=== PATIENT | female | born 1935 | race Two or more races ===

== ENCOUNTER 2023-02-23 18:23 | Inpatient (IN) | payer MEDICARE, OTHER ==
[~2023-02-23] VITALS: Ht 144.8 cm; Wt 65.8 kg
[2023-02-23 19:02] LABS: BASOPHILS # (AUTO) 0.3 K/UL (0.0-0.2); BASOPHILS % (AUTO) 4.4 % (0.0-2.0); EOSINOPHILS # (AUTO) 0.4 K/uL (0.0-0.7); EOSINOPHILS % (AUTO) 6.3 % (0.0-7.0); HEMATOCRIT 35.5 % (31.2-41.9); HEMOGLOBIN 11.2 g/dL (10.9-14.3); LYMPHOCYTES # (AUTO) 1.9 K/uL (0.8-4.8); LYMPHOCYTES % (AUTO) 29.9 % (20.5-51.5); MEAN CORPUSCULAR HEMOGLOBIN 24.6 uug (24.7-32.8); MEAN CORPUSCULAR HGB CONC 32 g/dL (32.3-35.6); MEAN CORPUSCULAR VOLUME 77.9 fL (75.5-95.3); MONOCYTES # (AUTO) 0.4 K/uL (0.1-1.30); MONOCYTES % (AUTO) 7.1 % (0.0-11.0); NEUTROPHILS # (AUTO) 3.3 K/uL (1.8-8.9); NEUTROPHILS % (AUTO) 52.3 % (38.5-71.5); PLATELET COUNT (AUTO) 215 K/uL (179-408); RED BLOOD CELL COUNT(AUTO) 4.55 MIL/uL (3.63-4.92); RED CELL DISTRIBUTION WIDTH 21.4 % (12.3-17.7); WHITE BLOOD COUNT (AUTO) 6.3 K/uL (3.8-11.8)
[2023-02-23 19:04] LABS: DIFFERENTIAL COMMENT 1
[2023-02-23 19:11] LABS: AMMONIA < 10 umol/L (11-32); CALCIUM 9.2 mg/dL (8.5-10.1); CARBON DIOXIDE 30 mmol/L (21-32); CHLORIDE 109 mmol/L (98-107); CREATININE 1.4 mg/dL (0.6-1.3); GLUCOSE 105 mg/dL (74-106); POTASSIUM 3.6 mmol/L (3.5-5.1); SODIUM SERUM 148 mmol/L (136-145); UREA NITROGEN, BLOOD 40 mg/dL (7-18)
[2023-02-23 19:15] LABS: ETHANOL < 3 MG/DL (0-10)
[2023-02-23 19:18] LABS: ACETAMINOPHEN 2.5 ug/mL (10-30); ALANINE AMINOTRANSFERASE 11 U/L (14-59); ALBUMIN 2.5 g/dL (3.4-5.0); ALKALINE PHOSPHATASE 60 U/L (50-136); ASPARTATE AMINOTRANSFERASE 8 U/L (15-37); BILIRUBIN,DIRECT 0.1 mg/dL (0.0-0.2); BILIRUBIN,TOTAL 0.3 mg/dL (0.2-1.0); TOTAL PROTEIN, SERUM 5.7 g/dL (6.4-8.2)
[2023-02-23 19:23] LABS: THYROID STIMULATING HORMONE 1.502 mIU/mL (0.358-3.740)
[2023-02-23 20:29] LABS: *CLARITY,URINE CLOUDY (CLEAR); *COLOR,URINE YELLOW (YELLOW); *KETONES,URINE 1+ (NEGATIVE); *PROTEIN,URINE 2+ (NEGATIVE); *UROBILINOGEN,URINE 0.2 E.U./dl (NORMAL); LEUKOCYTE ESTERASE ,URINE 3+ (NEGATIVE); NITRITE, URINE POSITIVE (NEGATIVE); UGLUCOSE NEGATIVE (NEGATIVE)
[2023-02-23 20:30] LABS: *BILIRUBIN,URIN 1+ (NEGATIVE); *BLOOD, URINE 1+ (NEGATIVE)
[2023-02-23] MEDS ORDERED: HALOPERIDOL LACTATE 5 MG/1 ML VIAL IM ONE (20:30)
[2023-02-23 20:31] LABS: BACTERIA,URINE FEW /HPF (NONE SEEN)
[2023-02-23] MEDS ORDERED: HALOPERIDOL LACTATE 5 MG/1 ML VIAL ONE (20:31)
[2023-02-23] MEDS ORDERED: CEFTRIAXONE 1 G in IV DEXTROSE 5% 50 ML IV ONE (20:45)
[2023-02-23] MEDS ORDERED: CEFTRIAXONE /D5W 50ML IVPB **ER PYXIS IV ONE (21:30)
[2023-02-23 22:40] VITALS: BP 172/56; TEMP 97.3; O2SAT 91
[2023-02-23] MEDS ORDERED: MORPHINE SULFATE 2 MG/1 ML DISP.SYRIN IV PRN (22:45)
[2023-02-23] MEDS ORDERED: ACETAMINOPHEN 325 MG TABLET PO PRN (22:45)
[2023-02-23] MEDS ORDERED: ENALAPRILAT DIHYDRATE 1.25 MG/1 ML VIAL IV PRN (22:45)
[2023-02-23] MEDS ORDERED: ONDANSETRON 4 MG/2 ML VIAL IV PRN (22:45)
[2023-02-23] MEDS: LORAZEPAM 2 MG/1 ML VIAL IV PRN (23:21)
[2023-02-23] MEDS: ENOXAPARIN SODIUM 30 MG/0.3 ML DISP.SYRIN SUBCUT SCH (23:22)
[2023-02-24 04:40] VITALS: BP 147/53; TEMP 98.5; O2SAT 95
[2023-02-24] MEDS: PANTOPRAZOLE SODIUM 40 MG TABLET.DR PO SCH (06:41)
[2023-02-24 07:18] LABS: BASOPHILS # (AUTO) 0.1 K/UL (0.0-0.2); BASOPHILS % (AUTO) 1.5 % (0.0-2.0); EOSINOPHILS # (AUTO) 0.3 K/uL (0.0-0.7); EOSINOPHILS % (AUTO) 6.8 % (0.0-7.0); HEMOGLOBIN 12.3 g/dL (10.9-14.3); LYMPHOCYTES # (AUTO) 1.7 K/uL (0.8-4.8); LYMPHOCYTES % (AUTO) 35.7 % (20.5-51.5); MEAN CORPUSCULAR HEMOGLOBIN 25.2 uug (24.7-32.8); MEAN CORPUSCULAR HGB CONC 32 g/dL (32.3-35.6); MEAN CORPUSCULAR VOLUME 78.1 fL (75.5-95.3); MONOCYTES # (AUTO) 0.5 K/uL (0.1-1.30); MONOCYTES % (AUTO) 10.9 % (0.0-11.0); NEUTROPHILS # (AUTO) 2.1 K/uL (1.8-8.9); NEUTROPHILS % (AUTO) 45.1 % (38.5-71.5); PLATELET COUNT (AUTO) 217 K/uL (179-408); RED BLOOD CELL COUNT(AUTO) 4.86 MIL/uL (3.63-4.92); RED CELL DISTRIBUTION WIDTH 21.2 % (12.3-17.7); WHITE BLOOD COUNT (AUTO) 4.7 K/uL (3.8-11.8)
[2023-02-24 07:27] LABS: DIFFERENTIAL COMMENT 1
[2023-02-24 07:46] LABS: IRON, SERUM 30 ug/dL (50-175)
[2023-02-24 07:55] LABS: ALANINE AMINOTRANSFERASE 14 U/L (14-59); ALBUMIN 2.6 g/dL (3.4-5.0); ALKALINE PHOSPHATASE 64 U/L (50-136); ASPARTATE AMINOTRANSFERASE 9 U/L (15-37); BILIRUBIN,TOTAL 0.4 mg/dL (0.2-1.0); CARBON DIOXIDE 29 mmol/L (21-32); CHLORIDE 108 mmol/L (98-107); CHOLESTEROL 223 mg/dL (<200); FERRITIN 129 ng/mL (8-252); GLUCOSE 98 mg/dL (74-106); HDL CHOLESTEROL 42 mg/dL (40-60); MAGNESIUM 2.1 mg/dL (1.8-2.4); NT-PRO BNP 1558 pg/mL (0-125); PHOSPHOROUS 3.1 mg/dL (2.5-4.9); POTASSIUM 3.5 mmol/L (3.5-5.1); SODIUM SERUM 146 mmol/L (136-145); TOTAL PROTEIN, SERUM 6.3 g/dL (6.4-8.2); TRIGLYCERIDES 255 MG/DL (30-150); UREA NITROGEN, BLOOD 34 mg/dL (7-18)
[2023-02-24] MEDS: FUROSEMIDE 20 MG/2 ML VIAL IV SCH (09:14)
[2023-02-24] MEDS: CHOLECALCIFEROL 1,000 UNIT TABLET PO SCH (09:40)
[2023-02-24] MEDS: ASCORBIC ACID 500 MG TABLET PO SCH (09:40)
[2023-02-24] MEDS: LORAZEPAM 2 MG/1 ML VIAL IV PRN ×2 (11:39→21:42)
[2023-02-24] MEDS ORDERED: DIVA250T4 PO (14:45)
[2023-02-24] MEDS ORDERED: DOCU100C36 PO (14:46)
[2023-02-24] MEDS ORDERED: MONT10TA22 PO (14:47)
[2023-02-24] MEDS ORDERED: HYDR12.55 PO (14:48)
[2023-02-24] MEDS ORDERED: RISP0.5T5 PO (14:49)
[2023-02-24] MEDS ORDERED: NIFE-34 PO (14:50)
[2023-02-24] MEDS ORDERED: LOSA50TA39 PO (14:51)
[2023-02-24] MEDS ORDERED: ASCO500T85 PO (14:53)
[2023-02-24] MEDS ORDERED: METO-357 PO (14:55)
[2023-02-24] MEDS ORDERED: CHOL10005 PO (14:55)
[2023-02-24] MEDS ORDERED: DONE5TAB34 PO (14:57)
[2023-02-24] MEDS ORDERED: METF-440 PO (14:57)
[2023-02-24] MEDS ORDERED: HYDR-4077 PO (14:58)
[2023-02-24] MEDS ORDERED: MEMA10TA PO (14:59)
[2023-02-24] MEDS ORDERED: MV-M1TAB2 PO (15:01)
[2023-02-24] MEDS ORDERED: CLOT30CR24 TP (15:02)
[2023-02-24] MEDS ORDERED: NUT.237L36 PO (15:02)
[2023-02-24] MEDS ORDERED: ZINC113P3 TP (15:03)
[2023-02-24] MEDS ORDERED: PANT40TA49 PO (15:06)
[2023-02-24] MEDS ORDERED: LINA5TAB PO (15:06)
[2023-02-24] MEDS ORDERED: SENN8.6T19 PO (15:08)
[2023-02-24] MEDS ORDERED: MAG355OR18 PO (15:09)
[2023-02-24] MEDS ORDERED: INSU100V28 (15:10)
[2023-02-24] MEDS ORDERED: BISA10SU61 RC (15:11)
[2023-02-24] MEDS ORDERED: NA P133E RC (15:13)
[2023-02-24] MEDS ORDERED: MAGN400O6 PO (15:14)
[2023-02-24] MEDS ORDERED: ACET325C7 PO (15:15)
[2023-02-24 15:50] VITALS: BP 143/60; TEMP 97.9; O2SAT 96
[2023-02-24] MEDS: IV D5W 1000ML 1,000 ML IV PRN (16:37)
[2023-02-24] MEDS ORDERED: FLEET ENEMA 133 ML BOTTLE RC PRN (18:30)
[2023-02-24] MEDS ORDERED: MAG HYDROX/AL HYDROX/SIMETH 30 ML LIQUID UDC PO PRN (18:30)
[2023-02-24] MEDS ORDERED: MAGNESIUM HYDROXIDE 30 ML LIQUID UDC PO PRN (18:30)
[2023-02-24] MEDS ORDERED: BISACODYL 10 MG SUPP.RECT RC PRN (18:30)
[2023-02-24 20:38] VITALS: BP 163/62; TEMP 98.5; O2SAT 94
[2023-02-24] MEDS: SENNOSIDES 1 TABLET PO SCH (20:38)
[2023-02-24] MEDS: MEMANTINE HCL 10 MG TABLET PO SCH (20:38)
[2023-02-24] MEDS: ENOXAPARIN SODIUM 30 MG/0.3 ML DISP.SYRIN SUBCUT SCH (20:39)
[2023-02-24 21:00] VITALS: BP 143/63
[2023-02-24] MEDS ORDERED: DOCUSATE SODIUM 100 MG CAPSULE PO SCH (21:00)
[2023-02-24] MEDS: CEFTRIAXONE 1 G in IV DEXTROSE 5% 50 ML IV SCH (22:02)
[2023-02-24] MEDS: DIVALPROEX 250 MG TABLET.DR PO SCH (22:05)
[2023-02-25 00:20] VITALS: BP 169/59; TEMP 97.8; O2SAT 93
[2023-02-25 04:20] VITALS: BP 161/66; TEMP 98.3; O2SAT 93
[2023-02-25] MEDS: DIVALPROEX 250 MG TABLET.DR PO SCH (05:16)
[2023-02-25] MEDS: PANTOPRAZOLE SODIUM 40 MG TABLET.DR PO SCH (06:21)
[2023-02-25] MEDS ORDERED: PANTOPRAZOLE SODIUM 40 MG TABLET.DR PO SCH (07:00)
[2023-02-25] MEDS ORDERED: DOCUSATE SODIUM 100 MG CAPSULE PO SCH (09:00)
[2023-02-25] MEDS ORDERED: ASCORBIC ACID 500 MG TABLET PO SCH (09:00)
[2023-02-25] MEDS: FUROSEMIDE 20 MG/2 ML VIAL IV SCH (09:19)
[2023-02-25] MEDS: METFORMIN HCL 500 MG TABLET PO SCH ×2 (09:19→17:13)
[2023-02-25] MEDS: LINAGLIPTIN 5 MG TABLET PO SCH (09:19)
[2023-02-25] MEDS: DONEPEZIL 5 MG TABLET PO SCH (09:19)
[2023-02-25] MEDS: MEMANTINE HCL 10 MG TABLET PO SCH ×2 (09:19→20:31)
[2023-02-25] MEDS: risperiDONE 0.5 MG TABLET PO SCH ×2 (09:19→17:13)
[2023-02-25] MEDS: ASCORBIC ACID 500 MG TABLET PO SCH (09:19)
[2023-02-25] MEDS: CHOLECALCIFEROL 1,000 UNIT TABLET PO SCH (09:20)
[2023-02-25] MEDS: hydrALAZINE HCL 50 MG TABLET PO SCH (09:22)
[2023-02-25] MEDS: METOPROLOL SUCCINATE XL 50 MG TAB.SR.24H PO SCH (09:22)
[2023-02-25] MEDS: LOSARTAN POTASSIUM 50 MG TABLET PO SCH (09:23)
[2023-02-25] MEDS: GLUCERNA 1.2 1000ML LIQUID PO SCH ×3 (09:23→17:14)
[2023-02-25] MEDS: NIFEdipine XL 60 MG TABSR PO SCH (09:24)
[2023-02-25] MEDS: IV D5W 1000ML 1,000 ML IV PRN (10:36)
[2023-02-25] MEDS: CLOTRIMAZOLE 1% CREAM 30 GM TUBE TP SCH ×2 (13:02→20:33)
[2023-02-25] MEDS: VALPROIC ACID 250 MG/5 ML LIQUID UDC PO SCH ×2 (13:36→21:07)
[2023-02-25 15:38] VITALS: BP 136/56; TEMP 97.8; O2SAT 96
[2023-02-25] MEDS: MONTELUKAST SODIUM 10 MG TABLET PO SCH (17:13)
[2023-02-25 20:00] VITALS: BP 132/62; TEMP 98.2; O2SAT 93
[2023-02-25] MEDS: SENNOSIDES 1 TABLET PO SCH (20:31)
[2023-02-25] MEDS: ENOXAPARIN SODIUM 30 MG/0.3 ML DISP.SYRIN SUBCUT SCH (20:32)
[2023-02-25] MEDS: DOCUSATE SODIUM 100 MG/10 ML LIQUID UDC PO SCH (20:32)
[2023-02-25] MEDS: CEFTRIAXONE 1 G in IV DEXTROSE 5% 50 ML IV SCH (21:07)
[2023-02-26] VITALS: BP 129/65; TEMP 98.4; O2SAT 94
[2023-02-26] MEDS: LORAZEPAM 2 MG/1 ML VIAL IV PRN ×2 (00:29→20:50)
[2023-02-26] MEDS: IV D5W 1000ML 1,000 ML IV PRN ×2 (02:18→19:15)
[2023-02-26 04:00] VITALS: BP 128/44; TEMP 98.1; O2SAT 94
[2023-02-26] MEDS: PANTOPRAZOLE ORAL SUSPENSION 40 MG SUSPDR.PKT PO SCH (06:04)
[2023-02-26] MEDS: VALPROIC ACID 250 MG/5 ML LIQUID UDC PO SCH ×3 (06:04→22:59)
[2023-02-26 07:32] LABS: BASOPHILS # (AUTO) 0.1 K/UL (0.0-0.2); BASOPHILS % (AUTO) 1.2 % (0.0-2.0); EOSINOPHILS # (AUTO) 0.5 K/uL (0.0-0.7); EOSINOPHILS % (AUTO) 6.7 % (0.0-7.0); HEMATOCRIT 34.1 % (31.2-41.9); HEMOGLOBIN 11.4 g/dL (10.9-14.3); LYMPHOCYTES # (AUTO) 2.5 K/uL (0.8-4.8); LYMPHOCYTES % (AUTO) 38.1 % (20.5-51.5); MEAN CORPUSCULAR HEMOGLOBIN 25.6 uug (24.7-32.8); MEAN CORPUSCULAR HGB CONC 33 g/dL (32.3-35.6); MEAN CORPUSCULAR VOLUME 76.8 fL (75.5-95.3); MONOCYTES # (AUTO) 0.7 K/uL (0.1-1.30); MONOCYTES % (AUTO) 10.6 % (0.0-11.0); NEUTROPHILS # (AUTO) 2.9 K/uL (1.8-8.9); NEUTROPHILS % (AUTO) 43.4 % (38.5-71.5); PLATELET COUNT (AUTO) 207 K/uL (179-408); RED BLOOD CELL COUNT(AUTO) 4.44 MIL/uL (3.63-4.92); RED CELL DISTRIBUTION WIDTH 20.9 % (12.3-17.7); WHITE BLOOD COUNT (AUTO) 6.7 K/uL (3.8-11.8)
[2023-02-26 07:38] LABS: DIFFERENTIAL COMMENT 1
[2023-02-26 07:43] LABS: CALCIUM 8.2 mg/dL (8.5-10.1); CARBON DIOXIDE 31 mmol/L (21-32); CHLORIDE 103 mmol/L (98-107); CREATININE 1.2 mg/dL (0.6-1.3); GLUCOSE 115 mg/dL (74-106); MAGNESIUM 1.8 mg/dL (1.8-2.4); PHOSPHOROUS 3.7 mg/dL (2.5-4.9); POTASSIUM 3.1 mmol/L (3.5-5.1); SODIUM SERUM 138 mmol/L (136-145); UREA NITROGEN, BLOOD 27 mg/dL (7-18)
[2023-02-26] MEDS: risperiDONE 0.5 MG TABLET PO SCH ×2 (09:04→17:20)
[2023-02-26] MEDS: ASCORBIC ACID 500 MG TABLET PO SCH (09:04)
[2023-02-26] MEDS: MEMANTINE HCL 10 MG TABLET PO SCH ×2 (09:04→20:38)
[2023-02-26] MEDS: NIFEdipine XL 60 MG TABSR PO SCH (09:05)
[2023-02-26] MEDS: CHOLECALCIFEROL 1,000 UNIT TABLET PO SCH (09:06)
[2023-02-26] MEDS: METFORMIN HCL 500 MG TABLET PO SCH ×2 (09:06→17:21)
[2023-02-26] MEDS: DONEPEZIL 5 MG TABLET PO SCH (09:06)
[2023-02-26] MEDS: LOSARTAN POTASSIUM 50 MG TABLET PO SCH (09:06)
[2023-02-26] MEDS: METOPROLOL SUCCINATE XL 50 MG TAB.SR.24H PO SCH (09:06)
[2023-02-26] MEDS: hydrALAZINE HCL 50 MG TABLET PO SCH (09:07)
[2023-02-26] MEDS: FUROSEMIDE 20 MG/2 ML VIAL IV SCH (09:09)
[2023-02-26] MEDS: LINAGLIPTIN 5 MG TABLET PO SCH (09:10)
[2023-02-26] MEDS: CLOTRIMAZOLE 1% CREAM 30 GM TUBE TP SCH ×2 (09:15→20:54)
[2023-02-26] MEDS: GLUCERNA 1.2 1000ML LIQUID PO SCH ×3 (09:15→17:21)
[2023-02-26] MEDS ORDERED: POTASSIUM CHLORIDE 20 MEQ POWDER PACKET PO ONE (10:00)
[2023-02-26 11:21] VITALS: BP 127/42; TEMP 97.6; O2SAT 93
[2023-02-26 16:00] VITALS: BP 138/45; TEMP 97.6; O2SAT 95
[2023-02-26] MEDS: MONTELUKAST SODIUM 10 MG TABLET PO SCH (17:21)
[2023-02-26 17:47] VITALS: BP 145/47; TEMP 97.8; O2SAT 96
[2023-02-26 20:28] VITALS: BP 114/43; TEMP 98.2; O2SAT 91
[2023-02-26] MEDS: DOCUSATE SODIUM 100 MG/10 ML LIQUID UDC PO SCH (20:38)
[2023-02-26] MEDS: SENNOSIDES 1 TABLET PO SCH (20:38)
[2023-02-26] MEDS: ENOXAPARIN SODIUM 30 MG/0.3 ML DISP.SYRIN SUBCUT SCH (20:39)
[2023-02-26] MEDS: CEFTRIAXONE 1 G in IV DEXTROSE 5% 50 ML IV SCH (22:56)
[2023-02-27] VITALS (7 sets, daily range): BP systolic 99–152; BP diastolic 36–64; TEMP 97.3–98.2; O2SAT 89–95
[2023-02-27] MEDS: VALPROIC ACID 250 MG/5 ML LIQUID UDC PO SCH ×3 (05:20→22:14)
[2023-02-27] MEDS: PANTOPRAZOLE ORAL SUSPENSION 40 MG SUSPDR.PKT PO SCH (06:09)
[2023-02-27 06:56] LABS: BASOPHILS # (AUTO) 0.1 K/UL (0.0-0.2); EOSINOPHILS # (AUTO) 0.4 K/uL (0.0-0.7); EOSINOPHILS % (AUTO) 4.5 % (0.0-7.0); HEMATOCRIT 35.1 % (31.2-41.9); HEMOGLOBIN 11.6 g/dL (10.9-14.3); LYMPHOCYTES # (AUTO) 3.6 K/uL (0.8-4.8); LYMPHOCYTES % (AUTO) 40.2 % (20.5-51.5); MEAN CORPUSCULAR HEMOGLOBIN 25.2 uug (24.7-32.8); MEAN CORPUSCULAR HGB CONC 33 g/dL (32.3-35.6); MEAN CORPUSCULAR VOLUME 76.6 fL (75.5-95.3); MONOCYTES # (AUTO) 0.9 K/uL (0.1-1.30); MONOCYTES % (AUTO) 10.4 % (0.0-11.0); NEUTROPHILS # (AUTO) 3.9 K/uL (1.8-8.9); NEUTROPHILS % (AUTO) 43.9 % (38.5-71.5); PLATELET COUNT (AUTO) 207 K/uL (179-408); RED BLOOD CELL COUNT(AUTO) 4.59 MIL/uL (3.63-4.92); WHITE BLOOD COUNT (AUTO) 8.9 K/uL (3.8-11.8)
[2023-02-27 07:01] LABS: DIFFERENTIAL COMMENT 1
[2023-02-27 07:25] LABS: CALCIUM 8.9 mg/dL (8.5-10.1); CARBON DIOXIDE 30 mmol/L (21-32); CHLORIDE 100 mmol/L (98-107); CREATININE 1.2 mg/dL (0.6-1.3); GLUCOSE 123 mg/dL (74-106); MAGNESIUM 1.7 mg/dL (1.8-2.4); PHOSPHOROUS 3.4 mg/dL (2.5-4.9); POTASSIUM 3.6 mmol/L (3.5-5.1); SODIUM SERUM 138 mmol/L (136-145); UREA NITROGEN, BLOOD 31 mg/dL (7-18)
[2023-02-27] MEDS: GLUCERNA 1.2 1000ML LIQUID PO SCH ×3 (08:36→17:55)
[2023-02-27] MEDS: METFORMIN HCL 500 MG TABLET PO SCH ×2 (08:58→17:55)
[2023-02-27] MEDS: LOSARTAN POTASSIUM 50 MG TABLET PO SCH (09:00)
[2023-02-27] MEDS: FUROSEMIDE 20 MG/2 ML VIAL IV SCH (09:00)
[2023-02-27] MEDS: hydrALAZINE HCL 50 MG TABLET PO SCH (09:00)
[2023-02-27] MEDS: NIFEdipine XL 60 MG TABSR PO SCH (09:00)
[2023-02-27] MEDS: CLOTRIMAZOLE 1% CREAM 30 GM TUBE TP SCH ×2 (09:00→22:13)
[2023-02-27] MEDS: METOPROLOL SUCCINATE XL 50 MG TAB.SR.24H PO SCH (09:00)
[2023-02-27] MEDS: DONEPEZIL 5 MG TABLET PO SCH (09:12)
[2023-02-27] MEDS: LINAGLIPTIN 5 MG TABLET PO SCH (09:13)
[2023-02-27] MEDS: MEMANTINE HCL 10 MG TABLET PO SCH ×2 (09:13→22:12)
[2023-02-27] MEDS: risperiDONE 0.5 MG TABLET PO SCH ×2 (09:13→17:55)
[2023-02-27] MEDS: CHOLECALCIFEROL 1,000 UNIT TABLET PO SCH (09:25)
[2023-02-27] MEDS: ASCORBIC ACID 500 MG TABLET PO SCH (09:25)
[2023-02-27] MEDS ORDERED: MAGNESIUM OXIDE 400 MG TABLET PO ONE (11:00)
[2023-02-27] MEDS: IV D5W 1000ML 1,000 ML IV PRN ×2 (14:06→14:18)
[2023-02-27] MEDS: MUPIROCIN 2% OINT 22 GM TUBE NS SCH ×2 (14:17→21:00)
[2023-02-27] MEDS: LORAZEPAM 2 MG/1 ML VIAL IV PRN (15:33)
[2023-02-27] MEDS: MONTELUKAST SODIUM 10 MG TABLET PO SCH (17:55)
[2023-02-27] MEDS: SENNOSIDES 1 TABLET PO SCH (22:12)
[2023-02-27] MEDS: DOCUSATE SODIUM 100 MG/10 ML LIQUID UDC PO SCH (22:12)
[2023-02-27] MEDS: CEFTRIAXONE 1 G in IV DEXTROSE 5% 50 ML IV SCH (22:14)
[2023-02-27] MEDS: ENOXAPARIN SODIUM 30 MG/0.3 ML DISP.SYRIN SUBCUT SCH (22:27)
[2023-02-28] VITALS: BP 125/65; TEMP 98.4; O2SAT 94
[2023-02-28] MEDS: IV D5W 1000ML 1,000 ML IV PRN (00:44)
[2023-02-28] MEDS: LORAZEPAM 2 MG/1 ML VIAL IV PRN (02:42)
[2023-02-28 04:00] VITALS: BP 121/57; TEMP 98.2; O2SAT 96
[2023-02-28] MEDS: VALPROIC ACID 250 MG/5 ML LIQUID UDC PO SCH ×2 (06:00→15:10)
[2023-02-28] MEDS: PANTOPRAZOLE ORAL SUSPENSION 40 MG SUSPDR.PKT PO SCH (06:40)
[2023-02-28 07:13] LABS: BASOPHILS # (AUTO) 0.1 K/UL (0.0-0.2); BASOPHILS % (AUTO) 0.9 % (0.0-2.0); EOSINOPHILS # (AUTO) 0.3 K/uL (0.0-0.7); EOSINOPHILS % (AUTO) 3.7 % (0.0-7.0); HEMATOCRIT 35.2 % (31.2-41.9); HEMOGLOBIN 11.6 g/dL (10.9-14.3); LYMPHOCYTES # (AUTO) 2.6 K/uL (0.8-4.8); LYMPHOCYTES % (AUTO) 27.5 % (20.5-51.5); MEAN CORPUSCULAR HEMOGLOBIN 25.3 uug (24.7-32.8); MEAN CORPUSCULAR HGB CONC 33 g/dL (32.3-35.6); MEAN CORPUSCULAR VOLUME 76.8 fL (75.5-95.3); MONOCYTES % (AUTO) 10.8 % (0.0-11.0); NEUTROPHILS # (AUTO) 5.3 K/uL (1.8-8.9); NEUTROPHILS % (AUTO) 57.1 % (38.5-71.5); PLATELET COUNT (AUTO) 184 K/uL (179-408); RED BLOOD CELL COUNT(AUTO) 4.58 MIL/uL (3.63-4.92); RED CELL DISTRIBUTION WIDTH 21.1 % (12.3-17.7); WHITE BLOOD COUNT (AUTO) 9.3 K/uL (3.8-11.8)
[2023-02-28 07:19] LABS: DIFFERENTIAL COMMENT 1
[2023-02-28 07:31] LABS: CALCIUM 8.3 mg/dL (8.5-10.1); CARBON DIOXIDE 32 mmol/L (21-32); CHLORIDE 103 mmol/L (98-107); GLUCOSE 119 mg/dL (74-106); PHOSPHOROUS 3.2 mg/dL (2.5-4.9); POTASSIUM 3.9 mmol/L (3.5-5.1); SODIUM SERUM 142 mmol/L (136-145); UREA NITROGEN, BLOOD 23 mg/dL (7-18)
[2023-02-28] MEDS: GLUCERNA 1.2 1000ML LIQUID PO SCH ×2 (08:00→12:00)
[2023-02-28] MEDS: CHOLECALCIFEROL 1,000 UNIT TABLET PO SCH (09:21)
[2023-02-28] MEDS: MEMANTINE HCL 10 MG TABLET PO SCH (09:21)
[2023-02-28] MEDS: DONEPEZIL 5 MG TABLET PO SCH (09:21)
[2023-02-28] MEDS: ASCORBIC ACID 500 MG TABLET PO SCH (09:21)
[2023-02-28] MEDS: METFORMIN HCL 500 MG TABLET PO SCH (09:21)
[2023-02-28] MEDS: LOSARTAN POTASSIUM 50 MG TABLET PO SCH (09:23)
[2023-02-28] MEDS: hydrALAZINE HCL 50 MG TABLET PO SCH (09:23)
[2023-02-28] MEDS: FUROSEMIDE 20 MG/2 ML VIAL IV SCH (09:24)
[2023-02-28] MEDS: METOPROLOL SUCCINATE XL 50 MG TAB.SR.24H PO SCH (09:24)
[2023-02-28] MEDS: MUPIROCIN 2% OINT 22 GM TUBE NS SCH (09:25)
[2023-02-28] MEDS: CLOTRIMAZOLE 1% CREAM 30 GM TUBE TP SCH (09:25)
[2023-02-28] MEDS: NIFEdipine XL 60 MG TABSR PO SCH (09:25)
[2023-02-28] MEDS: LINAGLIPTIN 5 MG TABLET PO SCH (09:40)
[2023-02-28] MEDS: risperiDONE 0.5 MG TABLET PO SCH (09:40)
[2023-02-28 12:05] VITALS: BP 107/42; TEMP 97.9; O2SAT 93
[2023-02-28 15:26] VITALS: O2SAT 94
== END 2023-02-28 17:00 | DRG 689 ==
LOC: ER 18:26 → TELE3 21:51
PROVIDERS: ADMIT Internal Medicine; ATTEND Nurse Practitioner Acute Care
DX: N39.0 Urinary tract infection, site not specified (principal); I50.33 Acute on chronic diastolic (congestive) heart failure; U07.1 COVID-19; E87.0 Hyperosmolality and hypernatremia; F03.93 Unspecified dementia, unspecified severity, with mood disturbance; F03.94 Unspecified dementia, unspecified severity, with anxiety; G93.40 Encephalopathy, unspecified; N17.9 Acute kidney failure, unspecified; F03.92 Unspecified dementia, unspecified severity, with psychotic disturbance; E86.0 Dehydration; J44.9 Chronic obstructive pulmonary disease, unspecified; E11.9 Type 2 diabetes mellitus without complications; E78.5 Hyperlipidemia, unspecified; I11.0 Hypertensive heart disease with heart failure; F31.9 Bipolar disorder, unspecified; K21.9 Gastro-esophageal reflux disease without esophagitis; Z87.01 Personal history of pneumonia (recurrent); Z79.84 Long term (current) use of oral hypoglycemic drugs
CPT/HCPCS: 36415; 70450; 71045; 83550; 83735; 84100; 84443; 84484; 85025; 93005; 93307; A4663; C1758; G0378; G0480; J0696; J1630; J1650; J1940; J2060; J2270; J3490; J7040; J7060; J7070

== ENCOUNTER 2023-11-17 16:51 | Inpatient (IN) | payer MEDICARE, OTHER ==
[~2023-11-17] VITALS: Ht 157.5 cm; Wt 63.5 kg
[~2023-11-17 16:51] MED LIST: ACET325C7 PO; ASCO500T85 PO; BISA10SU61 RC; CHOL10005 PO; CLOT30CR24 TP; DIVA250T4 PO; DOCU100C36 PO; DONE5TAB34 PO; HYDR-4077 PO; HYDR12.55 PO; INSU100V28; LINA5TAB PO; LOSA50TA39 PO; MAG355OR18 PO; MAGN400O6 PO; MEMA10TA PO; METF-440 PO; METO-357 PO; MONT10TA22 PO; MV-M1TAB2 PO; NA P133E RC; NIFE-34 PO; NUT.237L36 PO; PANT40TA49 PO; RISP0.5T5 PO; SENN8.6T19 PO; ZINC113P3 TP
[2023-11-17] MEDS: HALOPERIDOL LACTATE 5 MG/1 ML VIAL IM ONE (16:58)
[2023-11-17] MEDS ORDERED: HALOPERIDOL LACTATE 5 MG/1 ML VIAL ONE (16:58)
[2023-11-17] MEDS: LORAZEPAM 2 MG/1 ML VIAL IV ONE (17:10)
[2023-11-17] MEDS ORDERED: LORAZEPAM 2 MG/1 ML VIAL ONE (17:15)
[2023-11-17 17:34] LABS: BASOPHILS # (AUTO) 0.1 K/UL (0.0-0.2); BASOPHILS % (AUTO) 1.1 % (0.0-2.0); EOSINOPHILS # (AUTO) 0.7 K/uL (0.0-0.7); EOSINOPHILS % (AUTO) 5.6 % (0.0-7.0); HEMATOCRIT 37.2 % (31.2-41.9); HEMOGLOBIN 11.8 g/dL (10.9-14.3); LYMPHOCYTES # (AUTO) 2.9 K/uL (0.8-4.8); LYMPHOCYTES % (AUTO) 22.1 % (20.5-51.5); MEAN CORPUSCULAR HGB CONC 32 g/dL (32.3-35.6); MEAN CORPUSCULAR VOLUME 85.3 fL (75.5-95.3); MONOCYTES # (AUTO) 1.3 K/uL (0.1-1.30); MONOCYTES % (AUTO) 9.8 % (0.0-11.0); NEUTROPHILS % (AUTO) 61.4 % (38.5-71.5); PLATELET COUNT (AUTO) 257 K/uL (179-408); RED BLOOD CELL COUNT(AUTO) 4.36 MIL/uL (3.63-4.92); RED CELL DISTRIBUTION WIDTH 14.1 % (12.3-17.7); WHITE BLOOD COUNT (AUTO) 13.1 K/uL (3.8-11.8)
[2023-11-17 17:35] LABS: DIFFERENTIAL COMMENT 1
[2023-11-17] MEDS ORDERED: SULF1TAB48 PO (17:38)
[2023-11-17] MEDS ORDERED: CRAN400C PO (17:38)
[2023-11-17] MEDS ORDERED: MULT-594 PO (17:38)
[2023-11-17] MEDS ORDERED: PANT20TA2 PO (17:38)
[2023-11-17 17:41] LABS: *BILIRUBIN,URIN NEGATIVE (NEGATIVE); *BLOOD, URINE NEGATIVE (NEGATIVE); *CLARITY,URINE CLEAR (CLEAR); *COLOR,URINE YELLOW (YELLOW); *KETONES,URINE NEGATIVE (NEGATIVE); *PROTEIN,URINE 2+ (NEGATIVE); *UROBILINOGEN,URINE 0.2 E.U./dl (NORMAL); LEUKOCYTE ESTERASE ,URINE NEGATIVE (NEGATIVE); NITRITE, URINE NEGATIVE (NEGATIVE); UGLUCOSE NEGATIVE (NEGATIVE)
[2023-11-17 17:45] LABS: ALANINE AMINOTRANSFERASE 43 U/L (14-59); ALBUMIN 3.1 g/dL (3.4-5.0); ALKALINE PHOSPHATASE 81 U/L (50-136); ASPARTATE AMINOTRANSFERASE 18 U/L (15-37); BILIRUBIN,DIRECT 0.1 mg/dL (0.0-0.2); BILIRUBIN,TOTAL 0.5 mg/dL (0.2-1.0); CALCIUM 9.4 mg/dL (8.5-10.1); CARBON DIOXIDE 28 mmol/L (21-32); CHLORIDE 107 mmol/L (98-107); CREATININE 1.8 mg/dL (0.6-1.3); ETHANOL < 3 MG/DL (0-10); GLUCOSE 93 mg/dL (74-106); POTASSIUM 4.2 mmol/L (3.5-5.1); SODIUM SERUM 146 mmol/L (136-145); TOTAL PROTEIN, SERUM 6.8 g/dL (6.4-8.2); UREA NITROGEN, BLOOD 64 mg/dL (7-18)
[2023-11-17 17:48] LABS: *AMPHETAMINE, URINE NEGATIVE (NEGATIVE); *BARBITURATE, URINE NEGATIVE (NEGATIVE); *BENZODIAZEPINE, URINE NEGATIVE (NEGATIVE); *CANNABINOID, URINE NEGATIVE (NEGATIVE); *COCCAINE, URINE NEGATIVE (NEGATIVE); *OPIATE, URINE NEGATIVE (NEGATIVE); *PHENCYCLIDINE SCREEN,URINE NEGATIVE (NEGATIVE); FENTANYL, URINE NEGATIVE (NEGATIVE)
[2023-11-17] MEDS: IV NORMAL SALINE 1000 ML BAG IV ONE (17:55)
[2023-11-17 18:06] LABS: RBC,URINE 0-3 /HPF (0-3); SQUAMOUS EPITHELIAL CELL,UR MODERATE /HPF (NONE SEEN); WBC,URINE NONE SEEN /HPF (0-3)
[2023-11-17 18:07] LABS: BACTERIA,URINE FEW /HPF (NONE SEEN); COARSE GRANULAR CASTS,URINE 0-3 /LPF
[2023-11-17] MEDS ORDERED: ACETAMINOPHEN 325 MG TABLET PO PRN (22:15)
[2023-11-17] MEDS ORDERED: MAGNESIUM HYDROXIDE 30 ML LIQUID UDC PO PRN (22:15)
[2023-11-17] MEDS: BLOOD SUGAR DIAGNOSTIC 1 EACH STRIP VI ONE ×2 (22:15→23:25)
[2023-11-17] MEDS ORDERED: MAG HYDROX/AL HYDROX/SIMETH 30 ML LIQUID UDC PO PRN (22:15)
[2023-11-17 22:35] VITALS: BP 137/47; TEMP 98.2; O2SAT 96
[2023-11-18] MEDS: TEMAZEPAM 7.5 MG CAPSULE PO PRN
[2023-11-18] MEDS ORDERED: DEXTROSE 50% 50 ML DISP.SYRIN IV PRN (00:15)
[2023-11-18] MEDS ORDERED: INSULIN REGULAR, HUMAN 300 UNITS/3 ML VIAL SQ PRN (00:15)
[2023-11-18] MEDS: LORAZEPAM 1 MG TABLET PO PRN (02:41)
[2023-11-18] MEDS: BLOOD SUGAR DIAGNOSTIC 1 EACH STRIP VI SCH (07:35)
[2023-11-18] MEDS ORDERED: METFORMIN HCL 500 MG TABLET PO SCH (08:00)
[2023-11-18 08:52] VITALS: BP 124/72; TEMP 98; O2SAT 98
[2023-11-18] MEDS ORDERED: HYDROCHLOROTHIAZIDE 12.5 MG CAPSULE PO SCH ×2 (09:00)
[2023-11-18] MEDS ORDERED: MEMANTINE HCL 10 MG TABLET PO SCH (09:00)
[2023-11-18] MEDS ORDERED: SULFAMETH/TRIMETH 800/160 MG TABLET PO SCH (09:00)
[2023-11-18] MEDS ORDERED: DONEPEZIL 5 MG TABLET PO SCH (09:00)
[2023-11-18] MEDS ORDERED: LOSARTAN POTASSIUM 50 MG TABLET PO SCH ×2 (09:00)
[2023-11-18] MEDS: METOPROLOL SUCCINATE XL 50 MG TAB.SR.24H PO SCH (09:26)
[2023-11-18] MEDS: LINAGLIPTIN 5 MG TABLET PO SCH (09:26)
[2023-11-18] MEDS: hydrALAZINE HCL 50 MG TABLET PO SCH (09:26)
[2023-11-18] MEDS: SULFAMETH/TRIMETH 800/160 MG TABLET PO SCH (09:27)
[2023-11-18] MEDS: NIFEdipine XL 60 MG TABSR PO SCH (09:59)
[2023-11-18] MEDS: INSULIN REGULAR, HUMAN 300 UNIT/3 ML VIAL SQ PRN (12:30)
[2023-11-18] MEDS: DIVALPROEX 250 MG TABLET.DR PO SCH (13:59)
[2023-11-18] MEDS: DIVALPROEX SPRINKLE 125 MG CAP.SPRINK PO SCH (14:42)
[2023-11-18 15:10] VITALS: BP 129/52; TEMP 98; O2SAT 98
[2023-11-18] MEDS ORDERED: MONTELUKAST SODIUM 10 MG TABLET PO SCH (18:00)
[2023-11-19] MEDS ORDERED: LOSARTAN POTASSIUM 25 MG TABLET PO SCH (09:00)
[2023-11-19] MEDS ORDERED: LOSA25TA27 PO (11:25)
[2023-11-19] MEDS ORDERED: DEXT50DI8 IV (11:25)
[2023-11-19] MEDS ORDERED: DIVA125C2 PO (11:25)
[2023-11-19] MEDS ORDERED: INSU100V28 SQ (11:36)
== END 2023-11-18 17:07 | disposition short-term general hospital (02) | DRG 885 ==
LOC: ER 16:54 → GPS 21:45
PROVIDERS: ADMIT Psychiatry & Neurology Psychosomatic Medicine; ATTEND Internal Medicine
DX: F31.9 Bipolar disorder, unspecified (principal); N17.9 Acute kidney failure, unspecified; I11.0 Hypertensive heart disease with heart failure; F02.83 Dementia in other diseases classified elsewhere, unspecified severity, with mood disturbance; F02.84 Dementia in other diseases classified elsewhere, unspecified severity, with anxiety; G93.40 Encephalopathy, unspecified; I50.32 Chronic diastolic (congestive) heart failure; E86.0 Dehydration; G20.A1 Parkinson's disease without dyskinesia, without mention of fluctuations; Z91.199 Patient's noncompliance with other medical treatment and regimen due to unspecified reason; Z79.899 Other long term (current) drug therapy; J44.9 Chronic obstructive pulmonary disease, unspecified; E11.9 Type 2 diabetes mellitus without complications; E78.5 Hyperlipidemia, unspecified; Z79.4 Long term (current) use of insulin; Z79.84 Long term (current) use of oral hypoglycemic drugs; Z85.828 Personal history of other malignant neoplasm of skin
CPT/HCPCS: 36415; 85025; A4606; A4663; G0480; J1630; J1815; J2060; J3490; J7040

== ENCOUNTER 2023-11-18 17:13 | Inpatient (IN) | payer MEDICARE, OTHER ==
[~2023-11-18] VITALS: Ht 144.8 cm; Wt 60.3 kg
[~2023-11-18 17:13] MED LIST changes: -CLOT30CR24 TP; +CRAN400C PO; +MULT-594 PO; +PANT20TA2 PO; -RISP0.5T5 PO; +SULF1TAB48 PO
[2023-11-18 18:36] VITALS: BP 112/72; TEMP 98.1; O2SAT 96
[2023-11-18] MEDS: OLANZAPINE 10 MG VIAL IM ONE (18:52)
[2023-11-18] MEDS ORDERED: hydrALAZINE HCL 25 MG TABLET PO PRN (19:30)
[2023-11-18] MEDS ORDERED: ACETAMINOPHEN 325 MG TABLET PO PRN (19:30)
[2023-11-18 20:01] VITALS: BP 130/43; TEMP 97.9; O2SAT 97
[2023-11-18] MEDS: IV 1/2NS 1000 ML 1,000 ML IV PRN (21:07)
[2023-11-18] MEDS: DOCUSATE SODIUM 100 MG CAPSULE PO SCH (21:07)
[2023-11-18] MEDS: DIVALPROEX SPRINKLE 125 MG CAP.SPRINK PO SCH (21:07)
[2023-11-18] MEDS: LORAZEPAM 1 MG TABLET PO PRN (22:17)
[2023-11-19 00:02] VITALS: BP 137/47; TEMP 98; O2SAT 97
[2023-11-19] MEDS: OLANZAPINE 10 MG VIAL IM ONE ×2 (03:22→23:53)
[2023-11-19 04:00] VITALS: BP 120/36; TEMP 98; O2SAT 97
[2023-11-19] MEDS: DIVALPROEX SPRINKLE 125 MG CAP.SPRINK PO SCH (05:34)
[2023-11-19] MEDS: PANTOPRAZOLE SODIUM 40 MG TABLET.DR PO SCH (06:12)
[2023-11-19 06:46] LABS: BASOPHILS # (AUTO) 0.1 K/UL (0.0-0.2); BASOPHILS % (AUTO) 0.7 % (0.0-2.0); EOSINOPHILS # (AUTO) 0.8 K/uL (0.0-0.7); EOSINOPHILS % (AUTO) 8.9 % (0.0-7.0); HEMATOCRIT 38.8 % (31.2-41.9); HEMOGLOBIN 12.7 g/dL (10.9-14.3); LYMPHOCYTES # (AUTO) 2.7 K/uL (0.8-4.8); LYMPHOCYTES % (AUTO) 29.9 % (20.5-51.5); MEAN CORPUSCULAR HEMOGLOBIN 27.8 uug (24.7-32.8); MEAN CORPUSCULAR HGB CONC 33 g/dL (32.3-35.6); MEAN CORPUSCULAR VOLUME 84.9 fL (75.5-95.3); MONOCYTES # (AUTO) 1.1 K/uL (0.1-1.30); MONOCYTES % (AUTO) 12.1 % (0.0-11.0); NEUTROPHILS # (AUTO) 4.4 K/uL (1.8-8.9); NEUTROPHILS % (AUTO) 48.4 % (38.5-71.5); PLATELET COUNT (AUTO) 204 K/uL (179-408); RED BLOOD CELL COUNT(AUTO) 4.57 MIL/uL (3.63-4.92); RED CELL DISTRIBUTION WIDTH 14.6 % (12.3-17.7); WHITE BLOOD COUNT (AUTO) 9.1 K/uL (3.8-11.8)
[2023-11-19 07:09] LABS: DIFFERENTIAL COMMENT 1
[2023-11-19 07:20] LABS: THYROID STIMULATING HORMONE 1.628 mIU/mL (0.358-3.740)
[2023-11-19 07:54] LABS: ALANINE AMINOTRANSFERASE 41 U/L (14-59); ALKALINE PHOSPHATASE 89 U/L (50-136); ASPARTATE AMINOTRANSFERASE 19 U/L (15-37); BILIRUBIN,TOTAL 0.5 mg/dL (0.2-1.0); CALCIUM 8.8 mg/dL (8.5-10.1); CARBON DIOXIDE 29 mmol/L (21-32); CHLORIDE 105 mmol/L (98-107); CHOLESTEROL 211 mg/dL (<200); CREATININE 1.2 mg/dL (0.6-1.3); GLUCOSE 85 mg/dL (74-106); HDL CHOLESTEROL 56 mg/dL (40-60); MAGNESIUM 2.5 mg/dL (1.8-2.4); NT-PRO BNP 762 pg/mL (0-125); PHOSPHOROUS 3.2 mg/dL (2.5-4.9); POTASSIUM 4.1 mmol/L (3.5-5.1); SODIUM SERUM 142 mmol/L (136-145); TOTAL PROTEIN, SERUM 6.5 g/dL (6.4-8.2); TRIGLYCERIDES 192 MG/DL (30-150); UREA NITROGEN, BLOOD 48 mg/dL (7-18)
[2023-11-19 08:56] LABS: IRON, SERUM 41 ug/dL (50-175)
[2023-11-19] MEDS: METOPROLOL SUCCINATE XL 25 MG TAB.SR.24H PO SCH (09:42)
[2023-11-19] MEDS: LINAGLIPTIN 5 MG TABLET PO SCH (09:43)
[2023-11-19] MEDS: NIFEdipine XL 30 MG TABSR PO SCH (09:43)
[2023-11-19 11:11] VITALS: BP 108/57; TEMP 98.2; O2SAT 95
[2023-11-19] MEDS ORDERED: LOSA25TA27 PO (11:25)
[2023-11-19] MEDS ORDERED: DEXT50DI8 IV (11:25)
[2023-11-19] MEDS ORDERED: DIVA125C2 PO (11:25)
[2023-11-19] MEDS ORDERED: INSU100V28 SQ (11:36)
[2023-11-19] MEDS ORDERED: DIVALPROEX SPRINKLE 125 MG CAP.SPRINK PO SCH (14:00)
[2023-11-19 15:52] VITALS: BP 127/49; TEMP 97.9; O2SAT 95
[2023-11-19] MEDS: MONTELUKAST SODIUM 10 MG TABLET PO SCH (17:36)
[2023-11-19 20:22] VITALS: BP 133/45; TEMP 98.4; O2SAT 92
[2023-11-19 23:36] LABS: *BILIRUBIN,URIN NEGATIVE (NEGATIVE); *BLOOD, URINE NEGATIVE (NEGATIVE); *CLARITY,URINE CLEAR (CLEAR); *COLOR,URINE YELLOW (YELLOW); *KETONES,URINE NEGATIVE (NEGATIVE); *PROTEIN,URINE NEGATIVE (NEGATIVE); *UROBILINOGEN,URINE 0.2 E.U./dl (NORMAL); LEUKOCYTE ESTERASE ,URINE TRACE (NEGATIVE); NITRITE, URINE POSITIVE (NEGATIVE); UGLUCOSE NEGATIVE (NEGATIVE)
[2023-11-19 23:53] LABS: *CREATININE,URINE 48.4 mg/dL (30-125); *URINE TOTAL PROTEIN RANDOM 6.5 mg/dL (<150/24HR)
[2023-11-20 01:41] LABS: BACTERIA,URINE MODERATE /HPF (NONE SEEN); RBC,URINE NONE SEEN /HPF (0-3); SQUAMOUS EPITHELIAL CELL,UR MODERATE /HPF (NONE SEEN)
[2023-11-20 07:07] LABS: BASOPHILS # (AUTO) 0.1 K/UL (0.0-0.2); EOSINOPHILS # (AUTO) 0.5 K/uL (0.0-0.7); EOSINOPHILS % (AUTO) 6.4 % (0.0-7.0); LYMPHOCYTES # (AUTO) 2.2 K/uL (0.8-4.8); LYMPHOCYTES % (AUTO) 26.8 % (20.5-51.5); MEAN CORPUSCULAR HEMOGLOBIN 27.3 uug (24.7-32.8); MEAN CORPUSCULAR HGB CONC 32 g/dL (32.3-35.6); MEAN CORPUSCULAR VOLUME 84.4 fL (75.5-95.3); MONOCYTES # (AUTO) 1.1 K/uL (0.1-1.30); MONOCYTES % (AUTO) 12.9 % (0.0-11.0); NEUTROPHILS # (AUTO) 4.4 K/uL (1.8-8.9); NEUTROPHILS % (AUTO) 52.9 % (38.5-71.5); PLATELET COUNT (AUTO) 183 K/uL (179-408); RED BLOOD CELL COUNT(AUTO) 4.03 MIL/uL (3.63-4.92); RED CELL DISTRIBUTION WIDTH 13.8 % (12.3-17.7); WHITE BLOOD COUNT (AUTO) 8.3 K/uL (3.8-11.8)
[2023-11-20 07:17] VITALS: BP 141/45; TEMP 98.2; O2SAT 96
[2023-11-20 07:20] LABS: DIFFERENTIAL COMMENT 1
[2023-11-20 07:23] LABS: ALANINE AMINOTRANSFERASE 29 U/L (14-59); ALBUMIN 2.4 g/dL (3.4-5.0); ALKALINE PHOSPHATASE 74 U/L (50-136); ASPARTATE AMINOTRANSFERASE 9 U/L (15-37); BILIRUBIN,TOTAL 0.5 mg/dL (0.2-1.0); CALCIUM 8.5 mg/dL (8.5-10.1); CARBON DIOXIDE 29 mmol/L (21-32); CHLORIDE 110 mmol/L (98-107); GLUCOSE 101 mg/dL (74-106); MAGNESIUM 2.1 mg/dL (1.8-2.4); PHOSPHOROUS 2.9 mg/dL (2.5-4.9); POTASSIUM 4.2 mmol/L (3.5-5.1); SODIUM SERUM 145 mmol/L (136-145); TOTAL PROTEIN, SERUM 5.4 g/dL (6.4-8.2); UREA NITROGEN, BLOOD 27 mg/dL (7-18)
[2023-11-20] MEDS: PROTEIN SUPPLEMENT (PROSTAT) 30 ML LIQUID PO SCH (09:45)
[2023-11-20] MEDS: CEFTRIAXONE 1 G in IV DEXTROSE 5% 50 ML IV SCH (10:15)
[2023-11-20 11:42] VITALS: BP 139/53; TEMP 97.2; O2SAT 97
[2023-11-20 16:00] VITALS: BP 121/53; TEMP 98.5; O2SAT 97
[2023-11-20] MEDS ORDERED: METO50TA7 PO (16:23)
[2023-11-20] MEDS ORDERED: CEPH500C2 PO (16:23)
[2023-11-20] MEDS: FUROSEMIDE 20 MG/2 ML VIAL IV ONE (16:52)
[2023-11-20] MEDS ORDERED: ZOLPIDEM 5 MG TABLET PO PRN (18:30)
[2023-11-20] MEDS ORDERED: LORAZEPAM 0.5 MG TABLET PO PRN (18:30)
[2023-11-21] MEDS ORDERED: OLANZAPINE ZYDIS 5 MG TAB.RAPDIS PO SCH (09:00)
[2023-11-21] MEDS ORDERED: DIVALPROEX SPRINKLE 125 MG CAP.SPRINK PO SCH (09:00)
[2023-11-21] MEDS ORDERED: LOSARTAN POTASSIUM 25 MG TABLET PO SCH (09:00)
[2023-11-21] MEDS ORDERED: METO25TA3 PO (13:53)
[2023-11-21] MEDS ORDERED: NIFE30TA2 PO (13:54)
[2023-11-21] MEDS ORDERED: PANT40TA49 PO (13:56)
== END 2023-11-20 18:10 | DRG 682 ==
LOC: MEDSURG3 17:13 → UNDOADMIN 17:13 → TELE3 17:20 → MEDSURG3 11-19 10:15
PROVIDERS: ADMIT Internal Medicine; ATTEND Internal Medicine
DX: N17.0 Acute kidney failure with tubular necrosis (principal); G92.8 Other toxic encephalopathy; I50.31 Acute diastolic (congestive) heart failure; N39.0 Urinary tract infection, site not specified; F03.92 Unspecified dementia, unspecified severity, with psychotic disturbance; E87.0 Hyperosmolality and hypernatremia; F03.911 Unspecified dementia, unspecified severity, with agitation; I11.0 Hypertensive heart disease with heart failure; K21.9 Gastro-esophageal reflux disease without esophagitis; Z86.16 Personal history of COVID-19; I70.0 Atherosclerosis of aorta; F31.9 Bipolar disorder, unspecified; E66.9 Obesity, unspecified; Z68.28 Body mass index [BMI] 28.0-28.9, adult; E78.5 Hyperlipidemia, unspecified; E86.0 Dehydration; E88.09 Other disorders of plasma-protein metabolism, not elsewhere classified; E11.9 Type 2 diabetes mellitus without complications; Z79.84 Long term (current) use of oral hypoglycemic drugs; Z91.199 Patient's noncompliance with other medical treatment and regimen due to unspecified reason; Z91.51 Personal history of suicidal behavior; M89.8X9 Other specified disorders of bone, unspecified site; J44.9 Chronic obstructive pulmonary disease, unspecified
CPT/HCPCS: 36415; 71045; 83550; 83735; 84100; 84300; 84443; 84484; 85025; 93005; A4663; G0378; J0696; J1940; J2358

== ENCOUNTER 2023-11-20 19:06 | Inpatient (IN) | payer MEDICARE, OTHER ==
[~2023-11-20] VITALS: Ht 152.4 cm; Wt 63.5 kg
[~2023-11-20 19:06] MED LIST changes: -ACET325C7 PO; +CEPH500C2 PO; +DEXT50DI8 IV; +DIVA125C2 PO; -DIVA250T4 PO; -DONE5TAB34 PO; -HYDR12.55 PO; +INSU100V28 SQ; +LOSA25TA27 PO; -LOSA50TA39 PO; -MEMA10TA PO; -METF-440 PO; +METO50TA7 PO; -MV-M1TAB2 PO; -PANT40TA49 PO
--- NOTE | 2023-11-20 20:00 | NUR ---
ADMISSION NOTE: Admitted at the beginning of the shift an 88 years old female Moroccan speaker form the medical floor to MHU on a 5150 for GD. hold will today at 2100. Dr Trujillo was notified and he will fax 5250 hold. patient lives at [facility]. She was sent to [facility] ER d/t severe agitation, yelling and screaming, crawling out of bed, uncooperative and non-compliant. Initially, she was admitted to the unit but next day she was transferred to the medical floor for management of IRINA per her Psychiatrist. Once medically cleared patient is back to the unit. Upon admission, patient noted confused and disoriented, with occasional yelling, Face to face assessment done, pt reflects what is written on the hold. She was given her advisement as well as her booklet for patient's right mental health facilities. Patient is under the care of Dr Ramirez and dr Coles. Dr Coles was asked to reconciled her medication, he stated he will do in the morning. All her needs are met. will continue to monitor q15 min checks as per unit protocol.
[2023-11-20] MEDS ORDERED: MAG HYDROX/AL HYDROX/SIMETH 30 ML LIQUID UDC PO PRN (20:30)
[2023-11-20] MEDS ORDERED: LORAZEPAM 0.5 MG TABLET PO PRN (20:30)
[2023-11-20] MEDS ORDERED: TEMAZEPAM 7.5 MG CAPSULE PO PRN (20:30)
[2023-11-20] MEDS: LORAZEPAM 0.5 MG TABLET PO PRN (21:10)
--- NOTE | 2023-11-20 21:10 | NUR ---
Received [address] Trujillo and given to patient. Patient noted yelling and screaming. All her needs are met. her V/S are stable. she was given PO fluids and snacks. Emotional support given with increased observation. Ativan 0.5mg PO prn was given for agitation. will continue to monitor.
[2023-11-20] MEDS: BLOOD SUGAR DIAGNOSTIC 1 EACH STRIP VI ONE (21:20)
[2023-11-20] MEDS: TEMAZEPAM 7.5 MG CAPSULE PO PRN (21:40)
[2023-11-20] MEDS: OLANZAPINE 10 MG VIAL IM ONE (22:16)
--- NOTE | 2023-11-20 22:20 | NUR ---
CHEMICAL RESTRAIN: Patient continue yelling and screaming non-stopped. She is combative when ADLs are done. She is resistant to care. Emotional support given, Ativan 0.5mg PO PRN and Temazepam 7.5mg PO PRN given. Not effective. DR. Trujillo was notified and new order obtained to administer Zyprexa 5mg IM one time order. Order noted and carried out. Will continue to monitor.
--- NOTE | 2023-11-20 23:30 | NUR ---
Patient noted sleeping comfortable on her room in bed. ADLs done. patient is cooperative during care. Chemical restrain was effective. Will continue to monitor.
[2023-11-20 23:35] VITALS: BP 143/50; TEMP 98.8; O2SAT 97
[2023-11-21 08:27] VITALS: BP 139/56; TEMP 98.2; O2SAT 96
[2023-11-21] MEDS ORDERED: DIVALPROEX SPRINKLE 125 MG CAP.SPRINK PO SCH (09:20)
[2023-11-21] MEDS: DIVALPROEX SPRINKLE 125 MG CAP.SPRINK PO SCH (09:44)
[2023-11-21] MEDS: OLANZAPINE ZYDIS 5 MG TAB.RAPDIS SL SCH (09:44)
[2023-11-21] MEDS ORDERED: METO25TA3 PO (13:53)
[2023-11-21] MEDS ORDERED: NIFE30TA2 PO (13:54)
[2023-11-21] MEDS ORDERED: PANT40TA49 PO (13:56)
[2023-11-21] MEDS: ACETAMINOPHEN 325 MG TABLET PO PRN (16:05)
[2023-11-21 16:26] VITALS: BP 94/60; TEMP 98; O2SAT 96
[2023-11-21] MEDS ORDERED: FLEET ENEMA 133 ML BOTTLE RC PRN (17:30)
[2023-11-21] MEDS ORDERED: BISACODYL 10 MG SUPP.RECT RC PRN (17:30)
[2023-11-21] MEDS: LORAZEPAM 0.5 MG TABLET PO PRN (17:42)
[2023-11-21] MEDS: MONTELUKAST SODIUM 10 MG TABLET PO SCH (18:00)
[2023-11-21 20:15] VITALS: BP 130/55; TEMP 98.1; O2SAT 95
--- NOTE | 2023-11-21 21:00 | NUR ---
Received patient in her room in bed, she is noted awake, she is A/O x 1. she is Thai speaker. She is noted calm upon approached. She was able to comply with all her night time meds. her V/S are stable. she is in no apparent distress. She was given PO fluids and snacks. Safety and fall precautions are in place. will continue to monitor.
[2023-11-21] MEDS: CEphaleXIN 500 MG CAPSULE PO SCH (21:36)
[2023-11-21] MEDS: SENNOSIDES 1 TABLET PO SCH (21:36)
[2023-11-21] MEDS: ZOLPIDEM 5 MG TABLET PO PRN (22:24)
--- NOTE | 2023-11-21 22:25 | NUR ---
Patient noted with occasional yelling and screaming. She was noted having visual hallucinations. she kept staring at the wall and yelling at it. All her needs are met, Ambien 5mg PO PRN was given to help her sleep. will continue to monitor.
--- NOTE | 2023-11-21 23:30 | NUR ---
Patient noted sleeping. Ambien Po PRN was effective. will continue to monitor,
[2023-11-22] MEDS: PANTOPRAZOLE SODIUM 40 MG TABLET.DR PO SCH (06:37)
[2023-11-22 08:07] VITALS: BP 147/50; TEMP 98; O2SAT 97
[2023-11-22] MEDS: DOCUSATE SODIUM 100 MG CAPSULE PO SCH (09:00)
[2023-11-22] MEDS ORDERED: Medication Not On Formulary EA (Multivitamins (Multivitamin) 1 TAB) PO SCH (09:00)
[2023-11-22] MEDS: ASCORBIC ACID 500 MG TABLET PO SCH (09:00)
[2023-11-22] MEDS: GLUCERNA 1.2 1000ML LIQUID PO SCH (09:00)
[2023-11-22] MEDS: MULTIVITAMINS,THERAPEUTIC TABLET PO SCH (09:00)
[2023-11-22] MEDS ORDERED: Medication Not On Formulary EA (Cholecalciferol (Vitamin D3) (Vitamin D3) 1,000 UNIT) PO SCH (09:00)
[2023-11-22] MEDS: CHOLECALCIFEROL 1,000 UNIT TABLET PO SCH (09:00)
[2023-11-22] MEDS: LINAGLIPTIN 5 MG TABLET PO SCH (09:37)
[2023-11-22] MEDS: METOPROLOL SUCCINATE XL 25 MG TAB.SR.24H PO SCH (09:37)
--- NOTE | 2023-11-22 12:18 | NUR ---
MICHAEL FAMILY CONTACT: MICHAEL spoke with pts sonMaggie in person who would like pt to return back to the facility. MICHAEL stated as soon as the Doctor clears the pt to discharge, the hospital will notify him.
[2023-11-22] MEDS: risperiDONE-M 0.5 MG TAB.RAPDIS PO SCH ×2 (12:40→16:55)
--- NOTE | 2023-11-22 14:00 | NUR ---
CHEMICAL RESTRAIN: Patient continue yelling and screaming non-stopped. patient is resistant to care. Emotional support given, Ativan 0.5mg PO PRN and Tylenol prn given . Not effective. DR. Ramirez was notified and Zyprexa 5mg IM one time order. Order noted and carried out. Will continue to monitor.
[2023-11-22] MEDS: OLANZAPINE 10 MG VIAL IM STA (14:19)
--- NOTE | 2023-11-22 14:20 | NUR ---
vital sign monitoring : B/P 135/56,HR 71 R 18
--- NOTE | 2023-11-22 14:22 | NUR ---
GPS: Nursing Notes: Reassessment of Tylenol: Patient denies any pain. 0/10. Tylenol PO PRN was effective, continue to monitor for safety, continue with treatment plan.
[2023-11-22 16:37] VITALS: BP 130/46; TEMP 98; O2SAT 97
--- NOTE | 2023-11-22 17:50 | NUR ---
GPS: Nursing Notes: Reassessment of Ativan: Patient stopped shouting and became less anxious. Ativan PO PRN was effective, R=18, continue to monitor for safety, continue with treatment plan.
[2023-11-22 21:29] VITALS: BP 141/54; TEMP 97.9; O2SAT 98
--- NOTE | 2023-11-23 06:44 | NUR ---
PT SLEPT FOR 7:15 HRS. WOKE UP EARLY THEN STARTED YELLING AND SCREAMING,PRN MED FOR A/A WAS GIVEN WITH EFF.TOTAL CARE RENDERED.IN NO ACUTE DISTRESS NOTED.WILL CONTINUE TO MONITOR.
--- NOTE | 2023-11-23 08:22 | NUR ---
MICHAEL INITIAL DISCHARGE NOTE: Pt currently resides at [facility] located at [address] [place] [address] ([phone]). MICHAEL contacted the facility and left a voicemail for admissions and coronary care unit nurse to discuss a discharge plan. MICHAEL spoke with pts son, Maggie who would like pt to return back to the facility. MICHAEL will continue to work with the pt, family, and MD to ensure a safe and proper discharge plan.
[2023-11-23 08:30] LABS: BASOPHILS # (AUTO) 0.1 K/UL (0.0-0.2); BASOPHILS % (AUTO) 1.4 % (0.0-2.0); EOSINOPHILS # (AUTO) 0.4 K/uL (0.0-0.7); EOSINOPHILS % (AUTO) 5.1 % (0.0-7.0); HEMATOCRIT 37.1 % (31.2-41.9); HEMOGLOBIN 12.1 g/dL (10.9-14.3); LYMPHOCYTES # (AUTO) 2.7 K/uL (0.8-4.8); LYMPHOCYTES % (AUTO) 33.7 % (20.5-51.5); MEAN CORPUSCULAR HEMOGLOBIN 27.6 uug (24.7-32.8); MEAN CORPUSCULAR HGB CONC 33 g/dL (32.3-35.6); MEAN CORPUSCULAR VOLUME 84.6 fL (75.5-95.3); MONOCYTES # (AUTO) 0.8 K/uL (0.1-1.30); MONOCYTES % (AUTO) 10.3 % (0.0-11.0); NEUTROPHILS % (AUTO) 49.5 % (38.5-71.5); PLATELET COUNT (AUTO) 198 K/uL (179-408); RED BLOOD CELL COUNT(AUTO) 4.38 MIL/uL (3.63-4.92); RED CELL DISTRIBUTION WIDTH 14.1 % (12.3-17.7)
[2023-11-23 08:38] LABS: DIFFERENTIAL COMMENT 1
[2023-11-23 08:43] LABS: ALANINE AMINOTRANSFERASE 20 U/L (14-59); ALBUMIN 2.4 g/dL (3.4-5.0); ALKALINE PHOSPHATASE 85 U/L (50-136); ASPARTATE AMINOTRANSFERASE < 5 U/L (15-37); BILIRUBIN,TOTAL 0.4 mg/dL (0.2-1.0); CALCIUM 8.9 mg/dL (8.5-10.1); CARBON DIOXIDE 32 mmol/L (21-32); CHLORIDE 108 mmol/L (98-107); CREATININE 0.9 mg/dL (0.6-1.3); GLUCOSE 110 mg/dL (74-106); MAGNESIUM 2.3 mg/dL (1.8-2.4); PHOSPHOROUS 3.5 mg/dL (2.5-4.9); POTASSIUM 4.2 mmol/L (3.5-5.1); SODIUM SERUM 145 mmol/L (136-145); TOTAL PROTEIN, SERUM 6.3 g/dL (6.4-8.2); UREA NITROGEN, BLOOD 24 mg/dL (7-18)
[2023-11-23 08:52] VITALS: BP 109/56; TEMP 98; O2SAT 98
[2023-11-23] MEDS: DIVALPROEX SPRINKLE 125 MG CAP.SPRINK PO SCH (12:08)
[2023-11-23 15:31] VITALS: BP 137/44; TEMP 98; O2SAT 98
[2023-11-23] MEDS: risperiDONE 0.5 MG TABLET PO SCH (17:36)
[2023-11-23 20:05] VITALS: BP 130/54; TEMP 98.2; O2SAT 97
[2023-11-23] MEDS: REMEDY ESSENTIAL ZINC PASTE 113 GM TOP PRN (20:45)
[2023-11-23] MEDS: risperiDONE 1 MG TABLET PO SCH (20:46)
[2023-11-23] MEDS: TEMAZEPAM 7.5 MG CAPSULE PO PRN (22:34)
--- NOTE | 2023-11-24 06:44 | NUR ---
PT SLEPT FOR 5:30 HRS.STILL YELLING AND SCREAMING ON AND OFF FOR NO REASON.MED COMPLIANT.IN NO ACUTE DISTRESS NOTED.WILL CONTINUE TO MONITOR.
[2023-11-24 08:06] VITALS: BP 110/61; TEMP 98; O2SAT 96
--- NOTE | 2023-11-24 10:42 | NUR ---
MICHAEL DISCHARGE UPDATE: MICHAEL spoke with Winston from [facility] in [place] [phone] who stated pt is welcome back upon discharge. MICHAEL informed Winston that per PASRR, this SW cannot submit a PASRR fo the pt as she is from a SNF. the facility is required to do a resident review per PASRR. Winston is aware of this and agreeable.
[2023-11-24] MEDS: OLANZAPINE 10 MG VIAL IM ONE (15:19)
[2023-11-24 15:34] VITALS: BP 120/46; TEMP 98; O2SAT 99
--- NOTE | 2023-11-24 17:47 | NUR ---
GPS: Pt received in bed resting. Pt A0x1-2 throughout shift. Non-responsive to assessment questions r/t suicidality and hallucinations but was asking for her father and verbalized other things suggestive of hallucination/psychosis. Pt provided prn x2 during shift for agitation, screaming, and dysregulation. PRN medications minimally effective. Pt began screaming at staff and attempted to bite staff when providing care. Provider notified and ordered one time dose zyprexa IM. Pt tolerated well and became less aggressive but continued to yell intermittently. Subsequently pt consumed majority of dinner along with fluids. Will continue to monitor for safety and encourage fluid intake.
[2023-11-24] MEDS: risperiDONE 0.5 MG TABLET PO SCH (18:38)
[2023-11-24 19:57] LABS: BASOPHILS # (AUTO) 0.1 K/UL (0.0-0.2); BASOPHILS % (AUTO) 0.9 % (0.0-2.0); EOSINOPHILS # (AUTO) 0.5 K/uL (0.0-0.7); EOSINOPHILS % (AUTO) 4.7 % (0.0-7.0); HEMATOCRIT 35.5 % (31.2-41.9); HEMOGLOBIN 11.5 g/dL (10.9-14.3); LYMPHOCYTES # (AUTO) 4.1 K/uL (0.8-4.8); LYMPHOCYTES % (AUTO) 35.9 % (20.5-51.5); MEAN CORPUSCULAR HEMOGLOBIN 27.4 uug (24.7-32.8); MEAN CORPUSCULAR HGB CONC 32 g/dL (32.3-35.6); MEAN CORPUSCULAR VOLUME 85.1 fL (75.5-95.3); MONOCYTES # (AUTO) 0.9 K/uL (0.1-1.30); NEUTROPHILS # (AUTO) 5.8 K/uL (1.8-8.9); NEUTROPHILS % (AUTO) 50.5 % (38.5-71.5); PLATELET COUNT (AUTO) 240 K/uL (179-408); RED BLOOD CELL COUNT(AUTO) 4.18 MIL/uL (3.63-4.92); RED CELL DISTRIBUTION WIDTH 14.2 % (12.3-17.7); WHITE BLOOD COUNT (AUTO) 11.5 K/uL (3.8-11.8)
[2023-11-24 20:02] LABS: DIFFERENTIAL COMMENT 1
[2023-11-24 20:04] LABS: CALCIUM 8.9 mg/dL (8.5-10.1); CARBON DIOXIDE 26 mmol/L (21-32); CHLORIDE 105 mmol/L (98-107); CREATININE 1.1 mg/dL (0.6-1.3); GLUCOSE 140 mg/dL (74-106); POTASSIUM 4.4 mmol/L (3.5-5.1); SODIUM SERUM 142 mmol/L (136-145); UREA NITROGEN, BLOOD 29 mg/dL (7-18)
[2023-11-24 20:10] LABS: ALANINE AMINOTRANSFERASE 14 U/L (14-59); ALBUMIN 2.5 g/dL (3.4-5.0); ALKALINE PHOSPHATASE 86 U/L (50-136); ASPARTATE AMINOTRANSFERASE 6 U/L (15-37); TOTAL PROTEIN, SERUM 6.3 g/dL (6.4-8.2)
[2023-11-24 20:12] VITALS: BP 120/56; TEMP 98.1; O2SAT 96
[2023-11-24 20:15] LABS: AMMONIA 22 umol/L (11-32)
--- NOTE | 2023-11-24 20:30 | NUR ---
Received patient in her room in bed, she is noted awake, she is A/O x 1 hyperverbal. she is noted with intermittent yelling. She is Albanian speaker. Emotional support given. She was able to comply with all her night time meds. her V/S are stable. she is in no apparent distress. She was given PO fluids and snacks. Safety and fall precautions are in place. will continue to monitor.
--- NOTE | 2023-11-24 21:35 | NUR ---
Patient continue yelling. She is unable to be redirected. She was given Ativan 0.5mg PO PRN. Blood drawn was done earlier for Stat order CBC and CMP as well as a Chest X ray per (Екатерина [employer]avala [employer]) Awaiting results. will also try to collect UA. will continue to monitor.
--- NOTE | 2023-11-24 23:10 | NUR ---
Patient noted with occasional yelling.She is unable to fall asleep. Restoril 7.5mg PO PRN was given. CBC and CMP results are out. All are stable. She is in no apparent distress. Chest X ray still pending. will continue to monitor.
[2023-11-25 07:57] VITALS: BP 136/69; TEMP 98; O2SAT 96
[2023-11-25] MEDS: risperiDONE 1 MG TABLET PO SCH (13:47)
[2023-11-25 15:35] VITALS: BP 137/50; TEMP 98.2; O2SAT 96
--- NOTE | 2023-11-25 17:07 | NUR ---
RN NOTE: Pt was observed in shruthi chair at start of shift. Calm and quiet with no aggressive behavior. Short episodes of yelling 3-5pm but would intermittently sleep. Took her medications in chocolate pudding: VPA, Risperdal, PRN Ativan. Responds well to positive attention in soothing voice and therapeutic touch on her hand. Remains GD; she requires care of staff, provision of food, nursing home and clothing.
[2023-11-25 20:25] VITALS: BP 91/60; TEMP 99; O2SAT 95
--- NOTE | 2023-11-25 21:30 | NUR ---
Received patient in her room in bed, she is noted awake, she is A/O x 1 hyperverbal. yelling an screaming at times. she is attentions seeker. She is Belizean speaker. Emotional support given. all her needs are met. She was able to comply with all her night time meds. she was also given an Ativan 0.5mg PO PRN for anxiety; her V/S are stable. she is in no apparent distress. She was given PO fluids and snacks. Safety and fall precautions are in place. will continue to monitor.
[2023-11-26 00:27] LABS: *BILIRUBIN,URIN NEGATIVE (NEGATIVE); *BLOOD, URINE NEGATIVE (NEGATIVE); *COLOR,URINE YELLOW (YELLOW); *KETONES,URINE NEGATIVE (NEGATIVE); *PROTEIN,URINE TRACE (NEGATIVE); LEUKOCYTE ESTERASE ,URINE 1+ (NEGATIVE); NITRITE, URINE NEGATIVE (NEGATIVE); UGLUCOSE NEGATIVE (NEGATIVE)
[2023-11-26 00:28] LABS: *CLARITY,URINE HAZY (CLEAR)
[2023-11-26 00:38] LABS: RBC,URINE 0-3 /HPF (0-3)
[2023-11-26 00:39] LABS: BACTERIA,URINE MANY /HPF (NONE SEEN); SQUAMOUS EPITHELIAL CELL,UR MODERATE /HPF (NONE SEEN); YEAST,URINE FEW /HPF (NONE SEEN)
--- NOTE | 2023-11-26 02:30 | NUR ---
Patient noted with occasional yelling. Temazepam 7.5 mg po prn was given. Urine was also collected, randoms catch, and was sent out for urinalysis and for C&S. will f/u in the morning with the assigned medical doctor. Will continue to monitor.
--- NOTE | 2023-11-26 06:49 | NUR ---
Patient slept for approx 5 yrs through the night. she was given Tylenol 650mg PO PRN for generalized pain earlier this morning. She is now sleeping comfortable in her bed. will f/u with Urinalysis results.
[2023-11-26 07:53] VITALS: BP 106/55; TEMP 98; O2SAT 96
[2023-11-26 08:25] LABS: CALCIUM 8.6 mg/dL (8.5-10.1); CARBON DIOXIDE 29 mmol/L (21-32); CHLORIDE 108 mmol/L (98-107); CREATININE 0.9 mg/dL (0.6-1.3); GLUCOSE 117 mg/dL (74-106); POTASSIUM 3.9 mmol/L (3.5-5.1); SODIUM SERUM 144 mmol/L (136-145); UREA NITROGEN, BLOOD 35 mg/dL (7-18)
[2023-11-26 16:02] VITALS: BP 143/42; TEMP 97.4; O2SAT 95
--- NOTE | 2023-11-26 19:42 | NUR ---
RN NOTE: Pt slept in this morning. Up for AM medications. Able to communicate with nursing students who speak Farsi and Angolan. Pt was able to express feeling cold and needed 2 blankets. Pt not oriented to person and state her name. Pt also stated that "they are attacking the Persians." Pt did not start yelling until 1630. Needed much reassurance. Stated, "I wish was . If you don't get me out of this chair I will choke myself." Medication adherent with prompting.
[2023-11-26 20:00] VITALS: BP 158/45; TEMP 97.5; O2SAT 98
--- NOTE | 2023-11-27 06:53 | NUR ---
Per charge nurse, gave Protonix 40mg (1 tab) routine med.
--- NOTE | 2023-11-27 06:54 | NUR ---
PT SLEPT FOR 6:30 HRS.STILL YELLING AND SCREAMING ON AND OFF FOR NO REASON.MED COMPLIANT.PRN MEDS WERE GIVEN FOR SLEEP AND A/A WITH SL.EFF.IN NO ACUTE DISTRESS NOTED.WILL CONTINUE TO MONITOR.
[2023-11-27 08:09] VITALS: BP 128/54; TEMP 97.6; O2SAT 96
[2023-11-27] MEDS: AMOXICILLIN-CLAVUL 875-125MG TABLET PO SCH (10:24)
[2023-11-27] MEDS: OXCARBAZEPINE 150 MG TABLET PO SCH (14:17)
[2023-11-27 16:10] VITALS: BP 132/46; TEMP 97.7; O2SAT 96
--- NOTE | 2023-11-27 19:38 | NUR ---
RN NOTE: Pt slept in late. Meds given. Began yelling at 3pm. PRN Ativan minimally effective. Started Trileptal. Provided reassure. Checked frequently. Did not eat breakfast or lunch. AT 75 of dinner. Sone visited. Explained that Pt stated new AB for UTI.
[2023-11-27 20:00] VITALS: BP 123/59; TEMP 97.8; O2SAT 95
[2023-11-28 07:27] LABS: CALCIUM 8.7 mg/dL (8.5-10.1); CARBON DIOXIDE 32 mmol/L (21-32); CHLORIDE 110 mmol/L (98-107); CREATININE 0.8 mg/dL (0.6-1.3); GLUCOSE 107 mg/dL (74-106); POTASSIUM 4.2 mmol/L (3.5-5.1); SODIUM SERUM 146 mmol/L (136-145); UREA NITROGEN, BLOOD 28 mg/dL (7-18)
[2023-11-28 07:58] VITALS: BP 149/61; TEMP 97.9; O2SAT 96
--- NOTE | 2023-11-28 13:45 | NUR ---
Received Patient is confused and disoriented total feed and total care to all ADLs, patient compliant with all medication ,on and off yelling and screaming .Ativan given as ordered. patient with poor insight and poor impulse control ,will continue close monitoring.
[2023-11-28 16:57] VITALS: BP 136/82; TEMP 97.9; O2SAT 96
[2023-11-28] MEDS: risperiDONE 1 MG TABLET PO SCH (16:58)
[2023-11-28 20:21] VITALS: BP 106/79; TEMP 98.2; O2SAT 96
--- NOTE | 2023-11-28 21:30 | NUR ---
Received patient in her room in bed, she is noted awake, she is A/O x 1 to name only. she is disorganized, hyperverbal and confused. She is noted with occasional yelling and screaming that are increased with time. She is Guyanese speaker. However, Emotional support given. all her needs are met. She was able to comply with all her night time meds. she was also given an Ativan 0.5mg PO PRN for anxiety; her V/S are stable. she is in no apparent distress. She was given PO fluids and snacks. Safety and fall precautions are in place. will continue to monitor.
--- NOTE | 2023-11-29 01:00 | NUR ---
patient was given Temazepam 7.5mg PO PRN about 2 hours ago and was effective. She continue sleeping comfortable in her bed. No episodes of yelling have been noted since PRNs. will continue to monitor.
--- NOTE | 2023-11-29 06:44 | NUR ---
Patient slept for approx 5.30 hrs through the night. She is currently sleeping comfortable in her bed. No episodes of yelling and screaming at this time. will continue to monitor.
[2023-11-29 08:02] VITALS: BP 101/50; TEMP 98.4; O2SAT 96
[2023-11-29] MEDS ORDERED: TEMAZEPAM 7.5 MG CAPSULE PO PRN (15:30)
[2023-11-29 16:30] VITALS: BP 126/52; TEMP 98.1; O2SAT 96
[2023-11-29 20:00] VITALS: BP 146/84; TEMP 98; O2SAT 95
--- NOTE | 2023-11-30 07:00 | NUR ---
SLEPT 2 HOURS
[2023-11-30 08:04] VITALS: BP 123/50; TEMP 98.2; O2SAT 96
--- NOTE | 2023-11-30 10:58 | NUR ---
MICHAEL DISCHARGE UPDATE: MICHAEL spoke with Winston from [facility] in [place] [phone] and informed him that pt is not yet stable for discharge. Winston stated pt is welcome back whenever she is stable. MICHAEL reminded Winston that per PASRR, this SW cannot submit a PASRR for the pt as she is from a SNF. The facility is required to do a resident review per PASRR. Winston is aware of this discussion and agreeable. MICHAEL provided Lougie of the Nursing station number for pt dc updates. MICHAEL updated pts son, Maggie [phone] that this flex o writer operator will be out of office until December 12 and that he is welcome to call the unit for any pt related questions or discharge information, Maggie was grateful for the update and is hoskins that pt does not have a discharge date yet.
[2023-11-30] MEDS: OXCARBAZEPINE 150 MG TABLET PO SCH (12:22)
[2023-11-30] MEDS: risperiDONE 0.5 MG TABLET PO SCH (12:22)
[2023-11-30 15:28] VITALS: BP 97/63; TEMP 98; O2SAT 96
[2023-11-30] MEDS: risperiDONE 1 MG TABLET PO SCH ×2 (17:01→20:09)
[2023-11-30] MEDS: LORAZEPAM 0.5 MG TABLET PO SCH (17:07)
[2023-11-30 20:00] VITALS: BP 130/45; TEMP 98.1; O2SAT 95
[2023-11-30] MEDS: TEMAZEPAM 7.5 MG CAPSULE PO SCH (21:00)
--- NOTE | 2023-11-30 21:30 | NUR ---
Received patient in her room in bed, she is noted sleeping but she is easily arousable, after she woke up she is noted A/O x 1 to name only. then she stated yelling occasionally. Emotional support given and reality orientation. all her needs are met. She was able to comply with all her night time meds. and after she took all her night time meds she was able to stop yelling. she is now calm and cooperative. her V/S are stable. she is in no apparent distress. She was given PO fluids and snacks. Safety and fall precautions are in place. will continue to monitor.
[2023-12-01] MEDS: MAGNESIUM HYDROXIDE 30 ML LIQUID UDC PO PRN (06:05)
[2023-12-01 09:00] VITALS: BP 95/59; TEMP 98; O2SAT 96
[2023-12-01] MEDS: risperiDONE 0.5 MG TABLET PO SCH (10:16)
[2023-12-01 15:24] VITALS: BP 132/53; TEMP 98.4; O2SAT 97
--- NOTE | 2023-12-01 15:24 | NUR ---
MICHAEL DISCHARGE UPDATE: MICHAEL spoke with Winston in admissions from [facility] in [place] located at [address] [place] [address] . Winston stated pt is welcome back whenever she is stable. MICHAEL updated pts son, Maggie [phone] who is aware and agreeable with the discharge plan. No discharge date for the pt yet. MICHAEL reminded Winston that per PASRR, this SW cannot submit a PASRR for the pt as she is from a SNF and they must do a resident review. The facility is required to do a resident review per PASRR. Winston is aware of this discussion and agreeable as of 12/01/23. MICHAEL provided Lougie of the Nursing station number for pt dc updates.
--- NOTE | 2023-12-01 16:47 | NUR ---
RN NOTE: Pt has been in bed. Turned by BALE COVERER routinely. Pericare provided. Pt slept through the morning. Hold meds per vice president of customer service. Remains gravely disabled. Began yelling intermittently at 3:30 PM with periods of falling asleep. Responds well to positive attention. Took 1300 Risperdal and Trileptal.
[2023-12-01 20:00] VITALS: BP 134/48; TEMP 98.2; O2SAT 95
--- NOTE | 2023-12-02 06:47 | NUR ---
PT SLEPT FOR 6:45 HRS.STILL YELLING AND SCREAMING ON & OFF. PRN MED ATIVAN 0.5 MG WAS GIVEN WITH SL.EFF.TURN AND REPOSITION Q 2HRS.WILL CONTINUE TO MONITOR.
[2023-12-02 07:59] VITALS: BP 101/51; TEMP 98; O2SAT 96
[2023-12-02 08:56] LABS: BASOPHILS # (AUTO) 0.1 K/UL (0.0-0.2); BASOPHILS % (AUTO) 1.3 % (0.0-2.0); EOSINOPHILS # (AUTO) 0.5 K/uL (0.0-0.7); EOSINOPHILS % (AUTO) 6.5 % (0.0-7.0); HEMATOCRIT 34.4 % (31.2-41.9); HEMOGLOBIN 11.3 g/dL (10.9-14.3); LYMPHOCYTES # (AUTO) 2.7 K/uL (0.8-4.8); LYMPHOCYTES % (AUTO) 37.4 % (20.5-51.5); MEAN CORPUSCULAR HEMOGLOBIN 27.5 uug (24.7-32.8); MEAN CORPUSCULAR HGB CONC 33 g/dL (32.3-35.6); MEAN CORPUSCULAR VOLUME 83.6 fL (75.5-95.3); MONOCYTES # (AUTO) 0.8 K/uL (0.1-1.30); NEUTROPHILS # (AUTO) 3.1 K/uL (1.8-8.9); NEUTROPHILS % (AUTO) 43.8 % (38.5-71.5); PLATELET COUNT (AUTO) 173 K/uL (179-408); RED BLOOD CELL COUNT(AUTO) 4.12 MIL/uL (3.63-4.92); RED CELL DISTRIBUTION WIDTH 14.2 % (12.3-17.7); WHITE BLOOD COUNT (AUTO) 7.2 K/uL (3.8-11.8)
[2023-12-02 09:08] LABS: ALANINE AMINOTRANSFERASE 20 U/L (14-59); ALBUMIN 2.5 g/dL (3.4-5.0); ALKALINE PHOSPHATASE 79 U/L (50-136); ASPARTATE AMINOTRANSFERASE 14 U/L (15-37); BILIRUBIN,TOTAL 0.5 mg/dL (0.2-1.0); CALCIUM 8.9 mg/dL (8.5-10.1); CARBON DIOXIDE 30 mmol/L (21-32); CHLORIDE 109 mmol/L (98-107); CREATININE 0.8 mg/dL (0.6-1.3); GLUCOSE 115 mg/dL (74-106); SODIUM SERUM 143 mmol/L (136-145); TOTAL PROTEIN, SERUM 5.9 g/dL (6.4-8.2); UREA NITROGEN, BLOOD 24 mg/dL (7-18)
[2023-12-02 09:12] LABS: VALPROIC ACID < 3 ug/mL (50-100)
[2023-12-02 09:42] LABS: DIFFERENTIAL COMMENT 1
[2023-12-02 15:06] VITALS: BP 110/61; TEMP 98; O2SAT 96
[2023-12-02] MEDS ORDERED: risperiDONE 1 MG TABLET PO SCH (17:00)
[2023-12-02] MEDS: risperiDONE 0.5 MG TABLET PO SCH (18:10)
--- NOTE | 2023-12-02 18:39 | NUR ---
RN NOTE: Pt slept in late. Began yelling at approx 1600. Took her medications. +BM. Turned in bed. Episodes of yelling have decreased. Had Aida speaking RN from ER speak with her. She told him he has beautiful eyes. Denies pain. Not able to identify she is in the hospital. States she misses her children. Remains GD. Overall, less agitated.
[2023-12-02 19:50] VITALS: BP 110/56; TEMP 97.9; O2SAT 96
[2023-12-03 07:51] VITALS: BP 138/55; TEMP 98; O2SAT 98
--- NOTE | 2023-12-03 09:00 | NUR ---
PATIENT SITTING IN CHRIS CHAIR IN HALLWAY AND SCREAMING IN THE BEGINNING OF THE SHIFT. FOR BREAKFAST PT MOVED TO HER ROOM. SHE ATE BREAKFAST AND GOT HER AM MEDS AND CALMED DOWN. WILL CONTINUE TO MONITOR.
[2023-12-03] MEDS: OXCARBAZEPINE 150 MG TABLET PO SCH (14:34)
[2023-12-03] MEDS: risperiDONE 0.5 MG TABLET PO SCH (14:34)
[2023-12-03 15:00] VITALS: BP_SYST 135; BP_SYST 136; BP_DIAS 62; BP_DIAS 64; TEMP 97.8; TEMP 98; O2SAT 96; O2SAT 99
--- NOTE | 2023-12-03 16:00 | NUR ---
PT INTERMITTENTLY AWAKE AND SCREAMING WHEN AWAKE. SHE FALLS BACK TO SLEEP FOR A LITTLE BIT AND SCREAMS WHEN AWAKE. SON CAME TO VISIT. PT KEPT CLEAN AND DRY AND REPOSITIONED. PT DENIES PAIN AND DISCOMFORT. ATIVAN 0.5 MG PO ADMINISTERED FOR AGITATION WITH GOOD EFFECT. WILL CONTINUE TO MONITOR.
[2023-12-03] MEDS: OXCARBAZEPINE 300 MG TABLET PO SCH (17:34)
[2023-12-03] MEDS: DOCUSATE SODIUM 100 MG/10 ML LIQUID UDC PO SCH (17:34)
[2023-12-03 20:04] VITALS: BP 130/64; TEMP 97.8; O2SAT 96
[2023-12-04] MEDS: PANTOPRAZOLE ORAL SUSPENSION 40 MG SUSPDR.PKT PO SCH (06:22)
[2023-12-04 08:14] VITALS: BP 100/58; TEMP 98.5; O2SAT 96
[2023-12-04] MEDS: OXCARBAZEPINE 150 MG TABLET PO SCH (12:18)
[2023-12-04 16:54] VITALS: BP 120/50; TEMP 98.3; O2SAT 96
--- NOTE | 2023-12-04 18:26 | NUR ---
Patient remains in bed, sleeping on and off. Patient when awake is still bouts of yelling, patient needs constant company in the room to calm down and not yell. Patient is totally confuse and out of touch with reality, unable to make meaningful conversation at this point. Food and fluids given and tolerated. Incontinent care provided. Patient in no distress noted. Frequent rounding observed, all safety measures are placed and met.
[2023-12-04 21:27] VITALS: BP 111/52; TEMP 100.6; O2SAT 94
--- NOTE | 2023-12-04 23:35 | NUR ---
Patient has been mostly sleeping. At the start of the shift, the patient had a temperature of 100.6 . Multiple blankets were removed and PRN Tylenol was given with other routine PM medications. This software writer held the routine dose of Restoril noting that the patient was not in need of it. A total bath was given and the patient was awake during that time. A Optifoam was placed on the coccyx to prevent skin breakdown. Frequent turning and repositioning are on going along with safety measures. Fluids are encourage . A recheck of the patients Temperature showed 98.8. Continuing to monitor the patients VS, anxiety and comfort. No acute issues noted at this time.
[2023-12-05 08:03] VITALS: BP 138/53; TEMP 98.5; O2SAT 96
[2023-12-05] MEDS: OXCARBAZEPINE 150 MG TABLET PO SCH (12:11)
[2023-12-05] MEDS: risperiDONE 0.5 MG TABLET PO SCH (12:12)
[2023-12-05 16:35] VITALS: BP 150/53; TEMP 98.6; O2SAT 95
[2023-12-05 19:50] VITALS: BP 146/56; TEMP 98.3; O2SAT 95
[2023-12-06] MEDS: OXCARBAZEPINE 300 MG TABLET PO SCH (05:19)
--- NOTE | 2023-12-06 06:23 | NUR ---
Despite receiving routine and PRN medications, this patient has been awake, confused and screaming on and off for the last couple hours. Staff has made multiple attempts to calm the patient, including keeping the patient in line of site, encouraging oral fluids and providing AM care. None of these methods have proven effective. Safety Stratiges remain in place. Continuing to offer reassurance and reorientation as able.
[2023-12-06 08:04] VITALS: BP 154/73; TEMP 98.5; O2SAT 96
[2023-12-06] MEDS ORDERED: TEMAZEPAM 7.5 MG CAPSULE PO PRN (11:15)
[2023-12-06] MEDS: risperiDONE 0.5 MG TABLET PO SCH (12:30)
[2023-12-06] MEDS: OXCARBAZEPINE 150 MG TABLET PO SCH (12:30)
[2023-12-06] MEDS: LORAZEPAM 1 MG TABLET PO SCH (12:31)
--- NOTE | 2023-12-06 14:25 | NUR ---
Received Patient is confused and disoriented total feed and total care to all ADLs, patient compliant with all medication ,on and off yelling and screaming from 7 am to 11 am.Ativan given as ordered. patient with poor insight and poor impulse control ,will continue close monitoring.
[2023-12-06 16:24] VITALS: BP 142/60; TEMP 98.3; O2SAT 96
[2023-12-06 20:08] VITALS: BP 146/71; TEMP 98.5; O2SAT 96
--- NOTE | 2023-12-07 06:06 | NUR ---
Patient was asleep for this entire shift, laying supine comfortably w/o any s/s of distress. No yelling or screaming noted this shift. Safe environment provided.
[2023-12-07 08:25] VITALS: BP 125/56; TEMP 99; O2SAT 96
[2023-12-07] MEDS: METOPROLOL SUCCINATE XL 50 MG TAB.SR.24H PO SCH (10:05)
--- NOTE | 2023-12-07 14:08 | NUR ---
Patient is confused and disoriented total feed and total care to all ADLs, patient compliant with all medication ,patient is less yelling . patient with poor insight and poor impulse control ,will continue close monitoring.
[2023-12-07 15:01] VITALS: BP 112/61; TEMP 98; O2SAT 96
[2023-12-07 17:30] LABS: BASOPHILS # (AUTO) 0.1 K/UL (0.0-0.2); BASOPHILS % (AUTO) 0.8 % (0.0-2.0); EOSINOPHILS # (AUTO) 0.2 K/uL (0.0-0.7); HEMATOCRIT 34.7 % (31.2-41.9); HEMOGLOBIN 11.1 g/dL (10.9-14.3); LYMPHOCYTES # (AUTO) 2.4 K/uL (0.8-4.8); LYMPHOCYTES % (AUTO) 29.7 % (20.5-51.5); MEAN CORPUSCULAR HEMOGLOBIN 26.6 uug (24.7-32.8); MEAN CORPUSCULAR HGB CONC 32 g/dL (32.3-35.6); MEAN CORPUSCULAR VOLUME 83.1 fL (75.5-95.3); MONOCYTES # (AUTO) 0.9 K/uL (0.1-1.30); MONOCYTES % (AUTO) 11.7 % (0.0-11.0); NEUTROPHILS # (AUTO) 4.5 K/uL (1.8-8.9); NEUTROPHILS % (AUTO) 55.8 % (38.5-71.5); PLATELET COUNT (AUTO) 236 K/uL (179-408); RED BLOOD CELL COUNT(AUTO) 4.17 MIL/uL (3.63-4.92); RED CELL DISTRIBUTION WIDTH 14.5 % (12.3-17.7); WHITE BLOOD COUNT (AUTO) 8.1 K/uL (3.8-11.8)
[2023-12-07 17:32] LABS: DIFFERENTIAL COMMENT 1
[2023-12-07 19:51] VITALS: BP 120/64; TEMP 98.2; O2SAT 96
--- NOTE | 2023-12-08 06:53 | NUR ---
End of the shift, patient slept for 7 and 1/2 hours. She was yelling and screaming at the beginning of the shift. Been quiet until now. Will continue to monitor.
[2023-12-08 07:40] VITALS: BP 130/43; TEMP 98; O2SAT 96
--- NOTE | 2023-12-08 07:53 | NUR ---
PT IN HER ROOM IN BED IN THE BEGINNING OF THE SHIFT. LAYING DOWN WITH EYES CLOSED BUT SCREAMING OCCASIONALLY WITH SHORT SCREAMS. WILL CONTINUE TO MONITOR.
--- NOTE | 2023-12-08 08:49 | NUR ---
MECHANICAL DESIGN DRAFTER DISCHARGE NOTE: Patient will discharge to [facility] in [place] located at [address] [place] [address] PH:[phone] via ambulance transport on 12/08/23. SW called pt's son, Maggie ([phone]) to provide this information, pt's son was agreeable with the discharge plan and appreciated the update.
[2023-12-08 08:58] LABS: ALANINE AMINOTRANSFERASE 25 U/L (14-59); ALBUMIN 2.2 g/dL (3.4-5.0); ALKALINE PHOSPHATASE 79 U/L (50-136); ASPARTATE AMINOTRANSFERASE 16 U/L (15-37); BILIRUBIN,TOTAL 0.5 mg/dL (0.2-1.0); CALCIUM 9.1 mg/dL (8.5-10.1); CARBON DIOXIDE 30 mmol/L (21-32); CHLORIDE 109 mmol/L (98-107); CREATININE 0.9 mg/dL (0.6-1.3); GLUCOSE 152 mg/dL (74-106); POTASSIUM 3.7 mmol/L (3.5-5.1); SODIUM SERUM 144 mmol/L (136-145); TOTAL PROTEIN, SERUM 6.2 g/dL (6.4-8.2); UREA NITROGEN, BLOOD 31 mg/dL (7-18)
[2023-12-08 08:59] LABS: BASOPHILS # (AUTO) 0.1 K/UL (0.0-0.2); BASOPHILS % (AUTO) 0.7 % (0.0-2.0); EOSINOPHILS # (AUTO) 0.2 K/uL (0.0-0.7); EOSINOPHILS % (AUTO) 1.9 % (0.0-7.0); HEMATOCRIT 33.6 % (31.2-41.9); HEMOGLOBIN 10.8 g/dL (10.9-14.3); LYMPHOCYTES # (AUTO) 2.2 K/uL (0.8-4.8); LYMPHOCYTES % (AUTO) 24.7 % (20.5-51.5); MEAN CORPUSCULAR HEMOGLOBIN 26.6 uug (24.7-32.8); MEAN CORPUSCULAR HGB CONC 32 g/dL (32.3-35.6); MEAN CORPUSCULAR VOLUME 82.7 fL (75.5-95.3); MONOCYTES % (AUTO) 11.7 % (0.0-11.0); NEUTROPHILS # (AUTO) 5.4 K/uL (1.8-8.9); PLATELET COUNT (AUTO) 251 K/uL (179-408); RED BLOOD CELL COUNT(AUTO) 4.06 MIL/uL (3.63-4.92); RED CELL DISTRIBUTION WIDTH 14.4 % (12.3-17.7); WHITE BLOOD COUNT (AUTO) 8.8 K/uL (3.8-11.8)
[2023-12-08 09:08] LABS: DIFFERENTIAL COMMENT 1
--- NOTE | 2023-12-08 13:15 | NUR ---
PT ASLEEP IN HER ROOM IN BED. SHE IS AROUSABLE BUT FALLS BACK TO SLEEP. PT HAD POOR APPETITE FOR BREAKFAST AND DIDN'T FINISH HER MEAL. SHE BARELY FINISHED HER AM MEDS. PT ASLEEP AT LUNCH TIME AND REFUSING TO EAT AT THIS TIME. AFT MEDS HELD AND WILL MONITOR WHEN PT MORE AWAKE.
--- NOTE | 2023-12-08 13:50 | NUR ---
CALLED AMBULANCE. POST ANESTHESIA NURSE TIME SCHEDULED BETWEEN [id number]. CALLED [facility] AND GAVE REPORT TO KIMBERLY SALMERON. ALL QUESTIONS ANSWERED. CALL BACK NUMBER PROVIDED.
--- NOTE | 2023-12-08 14:03 | NUR ---
PT WOKE UP AND CLEANED. PT GOT AGITATED AND STARTED SCREAMING. RISPERIDONE 0.5MG AND TRILEPTAL AFT MEDS GIVEN. ATIVAN 0.5MG PRN AGITATION GIVEN.
--- NOTE | 2023-12-08 15:35 | NUR ---
PT LEFT UNIT BY AMBULANCE.
[2023-12-08 15:58] VITALS: BP 127/45; TEMP 98.8; O2SAT 94
== END 2023-12-08 15:35 | DRG 885 ==
LOC: GPS 19:06
PROVIDERS: ADMIT Psychiatry & Neurology Psychosomatic Medicine; ATTEND Internal Medicine
DX: F39 Unspecified mood [affective] disorder (principal); I11.0 Hypertensive heart disease with heart failure; G92.8 Other toxic encephalopathy; F03.92 Unspecified dementia, unspecified severity, with psychotic disturbance; I50.32 Chronic diastolic (congestive) heart failure; F03.911 Unspecified dementia, unspecified severity, with agitation; N39.0 Urinary tract infection, site not specified; E87.0 Hyperosmolality and hypernatremia; K21.9 Gastro-esophageal reflux disease without esophagitis; Z86.16 Personal history of COVID-19; J44.9 Chronic obstructive pulmonary disease, unspecified; E11.9 Type 2 diabetes mellitus without complications; E78.5 Hyperlipidemia, unspecified; E88.09 Other disorders of plasma-protein metabolism, not elsewhere classified; Z87.448 Personal history of other diseases of urinary system
CPT/HCPCS: 36415; 71045; 80164; 83735; 84100; 85025; A4606; A4663; G0480; J1630; J1815; J2060; J2358; J3490; J7040